=== PATIENT | female | born 1960 | race Caucasian/White ===

== ENCOUNTER 2023-12-12 09:46 | Outpatient (CLI) | payer MEDICARE, BC, SELFPAY ==
--- NOTE | 2023-12-12 09:45 | MR_ITS ---
[address] [address] Phone:?[phone] Fax:?[phone] Referring Physician Information: Marcos Hickey M.D. [address] [place] [id number] Phone:?[phone] Fax:?[phone] Patient:Leda Lee D.O.B:?1960 Sex:?Female Phone:?[phone] [facility] MRN:?[id number] Exam Date:?12/12/2023 EXAM: MRI of the LEFT SHOULDER WITHOUT CONTRAST CLINICAL HISTORY: Ongoing left shoulder pain. Fall injury. Evaluate for rotator cuff tear. COMPARISONS: Plain radiographs 12/06/2023. TECHNICAL: MRI sequences of the left shoulder: Axials: PD, T2 Coronals: PD, STIR, T2 Sagittals: PD, T2 SEDATION: None CONTRAST: None FINDINGS: Bones: No fracture or suspicious bone marrow signal abnormality. Coracoacromial arch: Acromion: No os acromiale. Type I-II acromion. Acromiohumeral space: The bony distance is unremarkable. Acromioclavicular joint: Slight degenerative changes. Coracoclavicular ligament: The coracoclavicular ligament is intact. Rotator cuff muscles/tendons: Supraspinatus: There is a 4 x 5 mm focus of ill-defined partial tearing of the supraspinatus tendon contacting the cortical insertional surface and closely approximating both the articular and bursal surfaces best seen on coronal sequences image 10 and sagittal sequences image 9. There is also strain versus ill-defined low-grade partial tear of the distal supraspinatus myotendinous junction best seen on coronal sequences image 12. There is moderate to marked atrophy of the supraspinatus muscle. Infraspinatus: The infraspinatus tendon and muscle are intact. Teres minor: The teres minor tendon and muscle are intact. Subscapularis: The subscapularis tendon and muscle are intact. Labrum and glenohumeral joint: No evidence of labral tear although evaluation is suboptimal because of nonarthrogram technique. Physiologic amount of joint fluid. No discrete chondral defect or subchondral bone marrow edema/cystic change is seen. There is edema-like signal within and thickening of the inferior glenohumeral ligament/glenohumeral joint capsule. There is soft tissue thickening within the rotator interval. Proximal biceps tendon, long head and short heads: Mild tendinopathy within the intra-articular portion of the long head of the biceps tendon The short head is intact. Bursae: Subacromial/subdeltoid: No convincing subacromial bursal thickening/bursitis. Subcoracoid: No convincing subcoracoid bursal thickening/bursitis. IMPRESSION: 1. 4 x 5 mm focus of ill-defined partial tearing of the supraspinatus tendon contacting the cortical insertional surface and closely approximating both the articular and bursal surfaces. Additionally, strain versus ill-defined low-grade partial tear of the distal supraspinatus myotendinous junction. Moderate to marked atrophy of the supraspinatus muscle. 2. Findings highly associated with adhesive capsulitis. 3. Mild tendinopathy within the intra-articular portion of the long head of the biceps tendon. RCB Electronically signed on 12/12/2023 12:06:00 PM by Uriel Molina M.D.
--- OUTSIDE RECORDS SUMMARY | 2023-12-12 09:51 | XMS_ITS ---
Author Organization [facility] Address [address] [place] [address] Care Team Providers Care Application Development Director Name Role Phone Unavailable Unavailable Unavailable Surgery Details Not on file Complications Check Surgery Details section. Procedure Estimated Blood Loss Check Surgery Details section. Procedure Findings Check Surgery Details section. Procedure Specimens Taken Check Surgery Details section.
--- OUTSIDE RECORDS SUMMARY | 2023-12-12 09:51 | XMS_ITS | Encounter Summary ---
Author Organization [facility] Address [address] [place] [address] Care Team Providers Care Relay Shop Supervisor Name Role Phone Carmella Montilla M.D. Primary Care Provider Reason for Visit * Reason Comments Shoulder Injury Encounter Details Date Type Department Care Team (Late st Contact Info) Description 12/03/2023 2:40 PM CDT - 12/03/2023 11:59 PM CDT Emergency [facility] [address] [place] [phone] History Of Falling (Primary Dx) Discharge Disposition: Home or Self Care Social History Tobacco Use Types Packs/Day Years Used Date Smoking Tobacco: Never Passive Smoke Exposure: Never Smokeless Tobacco: Never Alcohol Use Standard Drinks/Week Comments Not Currently 0 (1 standard drink = 0.6 oz pur e alcohol) Rare Humiliation, Afraid, Rape, and Kick questionnair e Answer Date Recorded Within the last year, have y ou been afraid of your partner or ex-partner? No 08/26/2022 Within the last year, have y ou been humiliated or emotionally abused in other ways by your partner or ex-partner? No Within the last year, have y ou been kicked, hit, slapped, or otherwise physically hurt by your partner or ex-partner? No 08/26/2022 Within the last year, have y ou been raped or forced to have any kind of sexual activity by your partner or ex-partner? No 08/26/2022 Social Connection and Isolation Panel [NHANES] A nswer Date Recorded In a typical week, how many times do you talk on the phone with family, friends, or neighbors? Patient declined 06/11/2019 How often do you get togethe r with friends or relatives? Patient declined 06/11/2019 How often do you attend amish or mormonism serv ices? Patient declined 06/11/2019 Do you belong to any clubs o r organizations such as amish groups, unions, fraternal or athletic groups, or school groups? Patient declined 06/11/2019 How often do you attend meet ings of the clubs or organizations you belong to? Patient declined 06/11/2019 Are you , , di vorced, , never , or living with a partner? 06/11/2019 Overall Financial Resource Strain (CARDIA) Answe r Date Recorded How hard is it for you to pa y for the very basics like food, housing, medical care, and heating? Somewhat hard 12/29/2022 PHQ-2 Answer Date Recorded PHQ-2 Score 2 12/29/2022 Exercise Vital Sign Answer Date Recorde d On average, how many days pe r week do you engage in moderate to strenuous exercise (like a brisk walk)? 0 days 12/29/2022 On average, how many minutes do you engage in exercise at this level? 0 min 12/29/2022 Hunger Vital Sign Answer Date Recorded Within the past 12 months, y ou worried that your food would run out before you got the money to buy more. Never true 12/30/19 23 Within the past 12 months, t he food you bought just didn't last and you didn't have money to get more. Never true 12/29/2022 PRAPARE - Transportation Answer Date Re corded In the past 12 months, has l ack of transportation kept you from medical appointments or from getting medications? No 12/14 In the past 12 months, has l ack of transportation kept you from meetings, work, or from getting things needed for daily living? No 12/29/2022 Depression Answer Date Recor ded PHQ-9 Total Score (max 27) 7 12/29 Nutrition Answer Date Recorded On average, how many serving s of fruits and vegetables do you eat per day (serving size is equal to 1 cup or approximately the size of a tennis ball)? 3-5 12/29/2022 Dental Answer Date Recorded Dental: Regular Dentist Yes 02/22/19 23 Employment Answer Date Recorded Employment status Permanently disabled 3 Housing Stability Answer Date Recorded What is your living situation today? I [address] a [facility] [place] [address] to live 12/29/2022 Education Answer Date Recorded What is the highest level of school you have completed or the highest degree you have received? 12th grade 10/09/2019 Comments No Sex and Gender Information Value Date Recorded Sex Assigned at Female 05/15/2021 12:03 PM CDT Legal Sex Female 4:24 AM CREDIT INVESTIGATOR Gender Identity Female 05/10/2017 9:37 AM CDT Sexual Orientation Straight 05/10/2017 9: 37 AM CDT documented as of this encounter Medications at Time of Discharge albuterol (Ventolin HFA) 90 mcg/actuation inhalerIndications :Asthma Moderate Persistent (HCC) Inhale 2 puffs every 6 (six) hours as needed for wheezing. 18 g 3 4 06/14/19 25 artificial tears with lanolin (REFRESH P.M.) ophthalmic ointment Apply 0.5 inches to both eyes at bedtime. benzonatate (TESSALON) 200 mg capsuleIndications :Asthma Cough Variant (HCC) Take 1 capsule (200 mg total) by mouth 3 (three) times a day as needed for cough. 42 capsule 3 3 02/10/20 24 blood-glucose meter (Blood Glucose Monitoring) kitIndications:Mary betes Mellitus Type 2 Hyperglycemia (HCC) Use as instructed 1 each 3 buPROPion (for_WELLBUTRIN SR) 150 mg 12 hr tablet Take 2 tablets by mouth daily. 7 carboxymethylce-gl ycerin-polysorbate 80 (Refresh Optive Advanced) 0.5-1-0.5 % ophthalmic solution Administer into both eyes 2 (two) times a day. ciprofloxacin-dexA METHasone (CIPRODEX) 0.3-0.1 % otic suspensionIndicati ons:Otitis Externa Acute Bilateral Administer 4 drops into the left ear 2 (two) times a day. 7.5 mL 3 clonazePAM (KlonoPIN) 1 mg tablet Take 1 tablet (1 mg total) by mouth 3 (three) times a day as needed. 2 Contour Next Test StripsIndications: Diabetes Mellitus Type 2 Hyperglycemia (HCC) TEST BLOOD SUGAR ONCE DAILY 100 strip 3 4 DME CPAP 2 EPINEPHrine (EpiPen 2-Bayron) 0.3 mg/0.3 mL injection syringeIndications :Allergy Food Subsequent Inject 0.3 mL (0.3 mg total) intramuscularly as needed for anaphylaxis. 1 each 2 3 estradioL (Estrace) 1 mg tablet take one tablet by mouth every day 90 tablet 3 4 fexofenadine (GENO) 180 mg tabletIndications: Asthma Moderate Persistent (HCC) Take 1 tablet (180 mg total) by mouth daily. 90 tablet 3 4 fluticasone propion-salmeteroL (Wixela Inhub) 250-50 mcg/dose diskus inhaler Inhale 1 puff 2 (two) times a day. Rinse mouth with water after use to reduce aftertaste and incidence of candidiasis. Do not swallow. 60 each 11 4 glipiZIDE (GlucotroL XL) 10 mg 24 hr tabletIndications: Diabetes Mellitus Type 2 Hyperglycemia (HCC) take one tablet by mouth twice a day with meals 180 tablet 3 4 ipratropium-albute roL (DUONEB) 0.5-2.5 mg/3 mL nebulizer solutionIndication s:Asthma Moderate Persistent (HCC) Inhale 3 mL by nebulization 4 (four) times a day as needed for wheezing or shortness of breath. 360 mL 5 4 06/16/19 25 lancets Use to check blood glucose levels once daily 100 each 3 3 latanoprost (Xalatan) 0.005 % ophthalmic solution INSTILL ONE DROP TO THE AFFECTED EYE(S) AT BEDTIME 2.5 mL 11 4 lisinopriL (PRINIVIL,ZESTRIL) 10 mg tabletIndications: Hypertension Essential Primary,Diabetes Mellitus Type 2 Hyperglycemia (HCC) Take 1 tablet (10 mg total) by mouth daily. 90 tablet 3 3 meclizine (ANTIVERT) 25 mg tabletIndications: Vertigo Take 1 tablet (25 mg total) by mouth 3 (three) times a day as needed for vertigo. 20 tablet 1 3 methylphenidate HCl (RITALIN) 10 mg tablet TAKE 2 TABLETS IN THE AFTERNOON AND 1 TABLET IN THE MORNING NEEDED 1 methylphenidate HCl (RITALIN) 20 mg tablet Take 20 mg by mouth daily. Taking in the afternoon montelukast (SINGULAIR) 10 mg tablet take one tablet by mouth at bedtime 90 tablet 3 4 nebulizers miscIndications:As thma Mild Persistent (HCC) Compact nebulizer machine, Cups, Filters and hose 1 each 1 omeprazole (PriLOSEC) [address] capsuleIndications :Dysphagia TAKE ONE CAPSULE BY MOUTH EVERY MORNING BEFORE BREAKFAST 90 capsule 3 3 prazosin (for_MINIPRESS) 1 mg capsule Take 2 capsules by mouth at bedtime. Prn 3 predniSONE (DELTASONE) 20 mg tablet Take 2 tablets (40 mg total) by mouth daily. 10 tablet 4 semaglutide (Ozempic) 0.25 mg or 0.5 mg (2 mg/3 mL) injectionIndicatio ns:Diabetes Mellitus Type 2 Hyperglycemia (HCC) Inject 0.5 mg under the skin every 7 (seven) days. 9 mL 3 3 02/10/20 24 simvastatin (ZOCOR) 40 mg tabletIndications: Hyperlipidemia On Treatment Take 1 tablet (40 mg total) by mouth at bedtime. 90 tablet 3 3 traZODone (DESYREL) 100 mg tablet Take 1 tablet (100 mg total) by mouth at bedtime as needed for sleep. 90 tablet 1 4 triamcinolone (KENALOG) 0.1 % ointment Apply topically 2 (two) times a day. 80 g 5 3 02/10/20 24 valACYclovir (VALTREX) 1000 mg tabletIndications: Herpes Simplex Labialis Take 1 tablet (1,000 mg total) by mouth 3 (three) times a day. 21 tablet 4 oxyBUTYnin (DITROPAN-XL) 10 mg 24 hr tablet Take 1 tablet (10 mg total) by mouth at bedtime. 90 tablet 3 3 12/11/19 24 documented as of this encounter Plan of Treatment Upcoming Encounters Date Type Department Care Team (Late st Contact Info) Description 12/20/2023 11:00 AM CREDIT INVESTIGATOR Office Visit Department of Family Medicine, [facility], in [place], [place] [address] [place] [phone] Carmella Montilla M.D. [address] [place] [phone] documented as of this encounter Goals Goal Patient Goal Type Associated Problems Recent Progress Patient-Stated? Author Blood Pressure < 130/80 Blood Pressure 128/80(2023 11:15 AM CDT) No Héctor Perea M.D. documented as of this encounter Procedures Procedure Name Priority Date/Time Associated Diagnosis Comments DX HUMERUS LEFT 2 VIEWS RAD - Semiurgent (Fast; most ED patients; some inpatients) 12/03/2023 3:24 PM CDT documented in this encounter Results * DX Humerus Left 2 Views (12/03/2023 3:24 PM CDT) Anatomical Region Laterality Modality Upper Extremity, Humerus, Mu sculoskeletal RST LOS, Musculoskeletal ARZ LOS, Muskuloskeletal FLA LOS Left Digit al Radiography Impressions 12/03/2023 3:36 PM CDT Negative for acute fracture. No aggressive appearing skeletal lesion. Mild ulnotrochlear degeneration. Mild acromioclavicular degeneration. Intact humerus. Narrative 12/03/2023 3:36 PM CDT EXAM: DX HUMERUS LEFT 2 VIEWS Procedure Note Pepito Presley M.D. - 12/03/2023 EXAM: DX HUMERUS LEFT 2 VIEWS IMPRESSION: Negative for acute fracture. No aggressive appearing skeletal lesion. Mildulnotrochlear degeneration. Mild acromioclavicular degeneration. Intacthumerus. [address] [facility] PROCEDUR ES Final Result documented in this encounter Visit Diagnoses Diagnosis History Of Falling- Primary documented in this encounter Additional Health Concerns Assessment Noted Time PHQ-9 Depression Total Score: 7 12/30/19 23 9:32 AM CREDIT INVESTIGATOR documented as of this encounter Care Teams Relay Shop Supervisor Relationship Specialty Start Date End Date Carmella Montilla M.D. [address] [place] [phone] PCP - General 03/10/22 documented as of this encounter
--- OUTSIDE RECORDS SUMMARY | 2023-12-12 09:51 | XMS_ITS | Clinical Summary ---
Author Organization [facility] Address [address] [place] [address] Care Team Providers Care Tanker Driver Name Role Phone Carmella Montilla M.D. Primary Care Provider Source Comments Patient records contain information from all sites at [facility]. For routine questions regarding patient records, call [phone] during business hours, M-F 8:00 AM - 5:00 PM Central Time. Record requests for emergency care only can be directed to [phone] at any time.[facility] Allergies Active Allergy Reactions Criticality Noted Date Comments Amoxicillin Other (see comments) 07/28/2020 welts Codeine Other (see comments) 12/29/2022 Impaired mental status Erythromycin Other (see comments) 06/19/2009 No rxn listed in cerner Fluticasone Propionate Rash 05/04/2023 Morphine Other (see comments) 06/19/2009 No rxn listed in cerner Penicillins Rash 02/11/2015 Oxycodone-Acetaminophen Other (see comments) No rxn listed in cerner Propofol Other (see comments) 09/28/2016 Contains soy Soy Shortness of breath (Reselect Reaction) 12/31/2010 Sulfa (Sulfonamide Antibiotics) Other (see comments) 07/28/2020 Sulfamethoxazole-Trimet hoprim Other (see comments) 06/19/2009 No rxn listed in cerner Medications * This document contains information received from the source organization and may not represent a complete record from that organization. buPROPion (for_WELLBUTRIN SR) 150 mg 12 hr tablet Take 2 tablets by mouth daily. 017 Active prazosin (for_MINIPRESS) 1 mg capsule Take 2 capsules by mouth at bedtime. Prn 013 Active methylphenidate HCl (RITALIN) 20 mg tablet Take 20 mg by mouth daily. Taking in the afternoon Active methylphenidate HCl (RITALIN) 10 mg tablet TAKE 2 TABLETS IN THE AFTERNOON AND 1 TABLET IN THE MORNING NEEDED 021 Active carboxymethylce- glycerin-polysor miguel 80 (Refresh Optive Advanced) 0.5-1-0.5 % ophthalmic solution Administer into both eyes 2 (two) times a day. Active artificial tears with lanolin (REFRESH P.M.) ophthalmic ointment Apply 0.5 inches to both eyes at bedtime. Active nebulizers miscIndications: Asthma Mild Persistent (HCC) Compact nebulizer machine, Cups, Filters and hose 1 each 021 Active clonazePAM (KlonoPIN) 1 mg tablet Take 1 tablet (1 mg total) by mouth 3 (three) times a day as needed. 022 Active DME CPAP 022 Active blood-glucose meter (Blood Glucose Monitoring) kitIndications:D iabetes Mellitus Type 2 Hyperglycemia (HCC) Use as instructed 1 each 023 Active lancets Use to check blood glucose levels once daily 100 each 3 023 Active ciprofloxacin-de xAMETHasone (CIPRODEX) 0.3-0.1 % otic suspensionIndica tions:Otitis Externa Acute Bilateral Administer 4 drops into the left ear 2 (two) times a day. 7.5 mL 023 Active simvastatin (ZOCOR) 40 mg tabletIndication s:Hyperlipidemia On Treatment Take 1 tablet (40 mg total) by mouth at bedtime. 90 tablet 3 023 Active omeprazole (PriLOSEC) [address] capsuleIndicatio ns:Dysphagia TAKE ONE CAPSULE BY MOUTH EVERY MORNING BEFORE BREAKFAST 90 capsule 3 023 Active lisinopriL (PRINIVIL,ZESTRI L) 10 mg tabletIndication s:Hypertension Essential Primary,Diabetes Mellitus Type 2 Hyperglycemia (HCC) Take 1 tablet (10 mg total) by mouth daily. 90 tablet 3 023 Active meclizine (ANTIVERT) 25 mg tabletIndication s:Vertigo Take 1 tablet (25 mg total) by mouth 3 (three) times a day as needed for vertigo. 20 tablet 1 023 Active benzonatate (TESSALON) 200 mg capsuleIndicatio ns:Asthma Cough Variant (HCC) Take 1 capsule (200 mg total) by mouth 3 (three) times a day as needed for cough. 42 capsule 3 023 2023 Active triamcinolone (KENALOG) 0.1 % ointment Apply topically 2 (two) times a day. 80 g 5 023 2023 Active EPINEPHrine (EpiPen 2-Bayron) 0.3 mg/0.3 mL injection syringeIndicatio ns:Allergy Food Subsequent Inject 0.3 mL (0.3 mg total) intramuscularly as needed for anaphylaxis. 1 each 2 023 Active semaglutide (Ozempic) 0.25 mg or 0.5 mg (2 mg/3 mL) injectionIndicat ions:Diabetes Mellitus Type 2 Hyperglycemia (HCC) Inject 0.5 mg under the skin every 7 (seven) days. 9 mL 3 023 2023 Active fexofenadine (GENO) 180 mg tabletIndication s:Asthma Moderate Persistent (HCC) Take 1 tablet (180 mg total) by mouth daily. 90 tablet 3 024 Active predniSONE (DELTASONE) 20 mg tablet Take 2 tablets (40 mg total) by mouth daily. 10 tablet 024 Active traZODone (DESYREL) 100 mg tablet Take 1 tablet (100 mg total) by mouth at bedtime as needed for sleep. 90 tablet 1 024 Active albuterol (Ventolin HFA) 90 mcg/actuation inhalerIndicatio ns:Asthma Moderate Persistent (HCC) Inhale 2 puffs every 6 (six) hours as needed for wheezing. 18 g 3 024 2024 Active fluticasone propion-salmeter oL (Wixela Inhub) 250-50 mcg/dose diskus inhaler Inhale 1 puff 2 (two) times a day. Rinse mouth with water after use to reduce aftertaste and incidence of candidiasis. Do not swallow. 60 each 11 Active ipratropium-albu teroL (DUONEB) 0.5-2.5 mg/3 mL nebulizer solutionIndicati ons:Asthma Moderate Persistent (HCC) Inhale 3 mL by nebulization 4 (four) times a day as needed for wheezing or shortness of breath. 360 mL 5 024 2024 Active valACYclovir (VALTREX) 1000 mg tabletIndication s:Herpes Simplex Labialis Take 1 tablet (1,000 mg total) by mouth 3 (three) times a day. 21 tablet Active montelukast (SINGULAIR) 10 mg tablet take one tablet by mouth at bedtime 90 tablet 3 Active Contour Next Test StripsIndication s:Diabetes Mellitus Type 2 Hyperglycemia (HCC) TEST BLOOD SUGAR ONCE DAILY 100 strip 3 Active glipiZIDE (GlucotroL XL) 10 mg 24 hr tabletIndication s:Diabetes Mellitus Type 2 Hyperglycemia (HCC) take one tablet by mouth twice a day with meals 180 tablet 3 Active estradioL (Estrace) 1 mg tablet take one tablet by mouth every day 90 tablet 3 Active latanoprost (Xalatan) 0.005 % ophthalmic solution INSTILL ONE DROP TO THE AFFECTED EYE(S) AT BEDTIME 2.5 mL 11 Active oxyBUTYnin (Ditropan-XL) 10 mg 24 hr tablet take one tablet by mouth at bedtime 90 tablet 3 024 Active latanoprost (XALATAN) 0.005 % ophthalmic solution INSTILL 1 DROP INTO BOTH EYES AT BEDTIME 2.5 mL 11 023 2023 Discontinued oxyBUTYnin (DITROPAN-XL) 10 mg 24 hr tablet Take 1 tablet (10 mg total) by mouth at bedtime. 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 Esophageal Motility Disorder 05/21/2021 Hypertension Essential Primary 01/18/2021 Anxiety 10/14/2020 Gastroesophageal Reflux Disease 07/29/2015 Morbid Obesity Body Mass Index 40.0-44.9 Adult 1 03/04/2014 Assessment & Plan (08/26/2022 11:44 AM CDT): Encouraged patient to exercise and cut back on foods high in carbs Posttraumatic Stress Disorder Prolonged 10/11/19 13 Incontinence Urinary Stress And Urge 08/02/2012 Hyperlipidemia On Treatment 10/21/2009 Attention Deficit Disorder Inattentive 0 Diabetes Mellitus Type 2 Hyperglycemia 9 Depression Major Recurrent Mild 08/03/2007 Overview (10/14/2020): Follows psych at [facility]. Asthma Mild Persistent 09/18/2006 Apnea Sleep Obstructive 09/06/2006 Overview (10/14/2020): On Cpap x15 years. Assessment & Plan (01/20/2020 3:00 PM LADLE CAR OPERATOR): Patient will benefit of using her CPAP. Order placed. She must continue with CPAP every night. Resolved Problems Problem Noted Date Diagnosed Date Resolved Date COVID-19 Infection 02/18/2021 4 Cholecystitis 08/21/2018 04/18/2019 Tonsillectomy And Adenoidectomy Status Post 07/22/2013 04/18/2019 Encounters Date Type Department Care Team Description 12/08/2023 Refill Department of Family Medicine, [facility], in [place], [place] [address] [place] [address] Carmella Montilla M.D. Med Refill 12/03/2023 2:40 PM CDT - 12/03/2023 11:59 PM CDT Emergency [facility] [address] [place] [address] History Of Falling (Primary Dx) Discharge Disposition: Home or Self Care 11/28/2023 Clinical Communication Department of Family Medicine, [facility], in [place], [place] [address] [place] [address] Carmella Montilla M.D. PandaDoc Form ([employer] ( CPAP Order ) 11/20/2023 Refill Department of Ophthalmology in [place], [place] [address] [place] [address] Alvaro Esposito M.D. Med Refill 10/16/2023 Refill Department of Family Medicine, [facility], in [place], [place] [address] [place] [address] Carmella Montilla M.D. Med Refill 09/19/2023 Orders Only [facility] Carm[facility] Montilla M.D. Diabetes Mellitus Type 2 Hyperglycemia (HCC) from Last 3 Months Immunizations Name Administration Dates Next Due H1N1 Inj Preservative Free 01/26/2009 HZV (ZOSTAVAX) 12/08/2014 Influenza Split 11/30/2004,11/24/2003,01/22/2003 Influenza, Seasonal, Injectable 12/28/2006 Influenza, Unspecified 01/04/2016,2014,12/11/2013,2013,11/18/2011,12/10/2010,12/16/2009 PPSV23 01/22/2003 Td Preservative Free (TENIVA C, DECAVAC) 01/22/2003 Tdap 08/31/2011 influenza trivalent vaccine (6 months and older)(PF) 11/24/2008 influenza vaccine quad (FLUZONE/FLUARIX) (6 months and older)(PF) 03/16/2019 Family History Medical History Relation Name Comments ADD Brother 1 Edward Anxiety disorder Brother 1 Edward Coronary artery disease Brother 1 Edward born bad valve [id number] years ago Depression Brother 1 Edward ptsd Diabetes Brother 1 Edward Heart valve disease Brother 1 Edward Valve re placement in 40's. Hyperlipidemia Brother 1 Edward Hypertension Brother 1 Edward Nephrolithiasis Brother 1 Edward Obesity Brother 1 Edward Sleep apnea Brother 2 ed ADD Daughter Wanda Obesity Daughter Wanda Anxiety disorder Father ed Coronary artery disease Father ed Diabetes Father ed Hypertension Father ed Sleep apnea Father ed Stroke Father ed Coronary artery disease Father's Brother Jose Alberto valve issue Coronary artery disease Father's Sister 1 elenor currnetly 3 leaky valves Hyperlipidemia Father's Sister 1 elenor Coronary artery disease Father's Sister 2 rolf replaced Coronary artery disease Father's Sister 3 rohini valve Diabetes Grandfather Maternal Diabetes Grandmother Maternal Rectal cancer Maternal Grandmother melchor Tuberculosis Maternal Grandmother melchor ADD Mother eleni Anxiety disorder Mother eleni Depression Mother eleni ?? Hyperlipidemia Mother eleni Obesity Mother eleni Breast cancer Mother's Sister 1 none Diabetes Mother's Sister 1 none Ovarian cancer Mother's Sister 1 none Breast cancer Mother's Sister 2 Breast cancer Mother's Sister 3 maggi Hyperlipidemia Mother's Sister 3 maggi ADD Son Sonu Relation Name Status Comments Brother 1 Edward Brother 2 ed Daughter Wanda Father ed Father's Brother Jose Alberto Father's Sister 1 elenor Father's Sister 2 rolf Father's Sister 3 rohini Grandfather Maternal Grandmother Maternal Maternal Grandmother melchor Mother eleni Mother's Sister 1 none Mother's Sister 2 Mother's Sister 3 maggi Son Sonu Social History Tobacco Use Types Packs/Day Years Used Date Smoking Tobacco: Never Passive Smoke Exposure: Never Smokeless Tobacco: Never Tobacco Cessation:Counseling Given: Not Answered Alcohol Use Standard Drinks/Week Comments Not Currently [...] declined 06/11/2019 How often do you attend mandaeism or hoahaoism serv ices? Patient declined 06/11/2019 Do you belong to any clubs o r organizations such as mandaeism groups, unions, fraternal or athletic groups, or [...] Date Recorded Dental: Regular Dentist Yes 02/22/19 Employment Answer Date Recorded Employment status Permanently disabled Housing Stability Answer Date Recorded What is your living situation today? I have a mago place to live 12/29/2022 Education Answer Date Recorded What is the highest level of school you have completed or the highest degree you have received? 12th grade 10/09/2019 Comments No Sex and Gender Information Value Date Recorded Sex Assigned at Female 05/15/2021 12:03 PM CDT Legal Sex Female 4:24 AM LADLE CAR OPERATOR Gender Identity Female 05/10/2017 9:37 AM CDT Sexual Orientation Straight 05/10/2017 9: 37 AM CDT Last Filed Vital Signs Vital Sign Reading Time Taken Comments Blood Pressure 128/80 06/19/2023 11:15 AM CDT Pulse 85 06/19/2023 11:15 AM CDT Temperature 36.7 ??C (98 ??F) 06/19/2023 11:15 AM CDT Respiratory Rate 16 03/14/2023 3:09 PM LADLE CAR OPERATOR Oxygen Saturation 96% 06/14/2023 11:43 AM CDT Inhaled Oxygen Concentration - - Weight 101 kg (223 lb 8.7 oz) 06/19/2023 11:15 A M CDT Height 158 cm (5' 2.21) 03/01/2023 2:15 PM LADLE CAR OPERATOR Body Mass Index 40.62 03/01/2023 2:15 PM LADLE CAR OPERATOR Plan of Treatment Upcoming Encounters Date Type Department Care Team (Late st Contact Info) Description 12/20/2023 11:00 AM LADLE CAR OPERATOR Office Visit Department of Family Medicine, [facility], in [place], [place] [address] [place] [address] Carmella Montilla M.D. [address] [place] [address] Health Maintenance Due Date Last Done Comments CT Colonography 1960 Cologuard 1960 FIT 1960 Pneumococcal vaccine (0-64 years) (2 of 2 - PCV) 01/23/2004 01/22/2003 Zoster Vaccines (2 of 3) 02/02/2015 12/08/2014 DTaP,Tdap,and Td Vaccines (2 - Td or Tdap) 08/30/2021 08/31/2011, 01/22/2003 Depression Monitoring (PHQ-9) 04/29/2023 12/29/2022 Visit: Medicare Annual Wellness 08/28/2023 08/26/2022 COVID-19 Vaccine ( season) 2023 Influenza Vaccine (#1) 2023 , 01/04/2016, 12/08/2014, Additional history exists Hemoglobin A1C 12/17/2023 06/16/2023, 12/14, 08/26/2022, Additional history exists Diabetic Office Visit with Foot Exam 12/30/2023 12/29/2022, 12/29/2022, 04/19/2019, Additional history exists Creatinine Level (Kidney Function Test) 01/01/2024 12/31/2022, 12/29/2022, 07/14/2022, Additional history exists Potassium Level 01/01/2024 12/31/2022, 12/14, 05/26/2022, Additional history exists Sodium Level 01/01/2024 12/31/2022, 12/14, 05/26/2022, Additional history exists Urine Albumin 06/15/2024 06/16/2023, 05/14, 04/02/2021, Additional history exists Office Visit for Blood Pressure Check / Re-check 06/18/2024 06/19/2023 Visit: Chronic Disease, age 18+ 06/18/2024 06/19/2023, 10/26/2021 Mammogram 08/03/2024 08/04/2023, /, 03/24/2021, Additional history exists Dilated Eye Exam 08/07/2024 08/08/2023, 03/2022, 07/07/2021 Colonoscopy 08/19/2025 08/20/2015 Colorectal Cancer Screening 08/19/2025 Lipid (Cholesterol) Screening 07/20/2026 07/20/2021, 04/28/2020, 04/19/2019, Additional history exists HIV Screening Completed 04/19/2019 Hepatitis C Screening Completed 04/19/2019 IPV Vaccines Aged Out No longer eligi ble based on patient's age to complete this topic Goals Goal Patient Goal Type Associated Problems Recent Progress Patient-Stated? Author Blood Pressure < 130/80 Blood Pressure 128/80(2023 11:15 AM CDT) Héctor Mesa M.D. Procedures Procedure Name Priority Date/Time Associated Diagnosis Comments DX HUMERUS LEFT 2 VIEWS RAD - Semiurgent (Fast; most ED patients; some inpatients) 12/03/2023 3:24 PM CDT BI BREAST SCREENING BILATERAL WITH TOMOSYNTHESIS RAD - Routine (most inpatients and all outpatients) 08/04/2023 3:34 PM CDT Screening Mammogram Breast Cancer ALBUMIN, RANDOM, U Routine 06/16/2023 11:10 AM CDT Diabetes Mellitus Type 2 Hyperglycemia (HCC) HEMOGLOBIN A1C, B Routine 06/16/2023 9:19 AM CDT Diabetes Mellitus Type 2 Hyperglycemia (HCC) BASIC METABOLIC PANEL, S/P Routine 12/29/2022 9:27 AM LADLE CAR OPERATOR Diabetes Mellitus Type 2 (HCC) LIPID PANEL, S Routine 07/20/2021 11:32 AM CDT Hyperlipidemia On Treatment HCV AB SCRN W/REFLEX TO HCV PCR, S Routine 04/19/2019 10:47 AM LADLE CAR OPERATOR Screening Test Laboratory HIV-1/-2 AG AND AB SCREEN, PLASMA Routine 04/19/2019 10:47 AM LADLE CAR OPERATOR Human Immunodeficiency Virus Screening from Last 3 Months or Most Recently Relevant to Health Maintenance Results * DX Humerus Left 2 Views [...] degeneration. Mild acromioclavicular degeneration. Intacthumerus. [address] [facility]NO[facility]IC IMAGING PROCEDUR ES Final Result * BI Breast Screening Bilateral with Tomosynthesis (08/04/2023 3:34 PM CDT) Anatomical Region Laterality Modality Breast, Breast Imaging RST L OS, Breast Imaging ARZ LOS, Breast Imaging FLA LOS Bilateral Mammography Impressions 08/04/2023 4:34 PM CDT Negative. RECOMMENDATION: ??Annual Screening Mammogram ASSESSMENT: ??BI-RADS: 1: Negative. Narrative 08/04/2023 4:34 PM CDT EXAM: ??BI BREAST SCREENING BILATERAL WITH TOMOSYNTHESIS Current study was evaluated with a Computer Aided Detection (CAD) system. INDICATION: ??Screening mammogram. COMPARISON: ??Prior exam(s) were available and reviewed for comparison. DENSITY: ??b. There are scattered areas of fibroglandular density. FINDINGS: ??No mammographic findings of malignancy. Procedure Note Merlin Rodriguez M.D. - 08/04/2023 EXAM: BI BREAST SCREENING BILATERAL WITH TOMOSYNTHESIS Current study was evaluated with a Computer Aided Detection (CAD) system. INDICATION: Screening mammogram. COMPARISON: Prior exam(s) were available and reviewed for comparison. DENSITY: b. There are scattered areas of fibroglandular density. FINDINGS: No mammographic findings of malignancy. IMPRESSION: Negative. RECOMMENDATION: Annual Screening Mammogram ASSESSMENT: BI-RADS: 1: Negative. Carmella Montilla M.D. IMG BI PROCEDURES Final Result * Albumin, Random, Urine (06/16/2023 11:10 AM CDT) Microalbumin <12.0 mg/L 06/16/2023 12:55 PM CDT [facility] Comment:If clinically indica marychuy, contact the lab for additional testing. Creatinine 73 mg/dL 06/16/2023 12:55 PM CDT [facility] Albumin/Creatinine Ratio <16 <25 mg/g 06/16/2023 12:55 PM CDT [facility] Comment: This ratio may not correspond with the reference range because one or both of the values used to calculate the ratio was above or below the quantification limits. Urine (Urine, Midstream) 06/16/2023 11:10 AM CDT 06/16/2023 12:02 PM CDT Carmella Montilla M.D. LAB URINE ORDERABLES Fi nal Result Performing Organization Address [facility] Co de Phone Number [facility] [address] [place] [phone], [facility] in [place] [address] [place] [phone] * (ABNORMAL) Hemoglobin A1c (06/16/2023 9:19 AM CDT) Hemoglobin A1c, B 6.9(H) 4.2 - 5.6 % 06/16/2023 9:49 AM CDT [facility] Comment: Hemoglobin A1c values greater than or equal to 6.5 percent are diagnostic for diabetes mellitus. ??Diagnosis should be confirmed by repeat testing. ??In diabetic patients, HbA1c goals should be discussed with healthcare provider. Blood (Blood, Venous) 06/16/2023 9:19 AM CDT 06/16/2023 9:27 AM CDT Carmella Montilla M.D. LAB BLOOD ADD-ON Final Result [facility] [address] [place] [address], [facility] in [place] [address] [place] [address] * (ABNORMAL) Basic Metabolic Panel (12/29/2022 9:27 AM LADLE CAR OPERATOR) Potassium, P 4.9 3.6 - 5.2 mmol/L 12/29/2022 10:16 AM LADLE CAR OPERATOR [facility] Sodium, P 135 135 - 145 mmol/L 12/29/2022 10:16 AM LADLE CAR OPERATOR [facility] Chloride, P 100 98 - 107 mmol/L 12/29/2022 10:16 AM LADLE CAR OPERATOR [facility] Bicarbonate, P 24 22 - 29 mmol/L 12/29/2022 10:16 AM LADLE CAR OPERATOR [facility] Anion Gap, P 11 7 - 15 12/29/2022 10:16 AM LADLE CAR OPERATOR [facility] BUN (Blood Urea Nitrogen), P 20 6 - 21 mg/dL 12/29/2022 10:16 AM LADLE CAR OPERATOR [facility] Creatinine 0.74 0.59 - 1.04 mg/dL 12/29/2022 10:16 AM LADLE CAR OPERATOR [facility] Estimated GFR (eGFR) >90 >=60 mL/min/BSA 12/29/2022 10:16 AM LADLE CAR OPERATOR [facility] Comment: Estimated GFR calculated using the 2020 CKD_EPI creatinine equation. Calcium, Total, P 9.5 8.8 - 10.2 mg/dL 12/29/2022 10:16 AM LADLE CAR OPERATOR [facility] Glucose, P 180(H) 70 - 140 mg/dL 12/29/2022 10:16 AM LADLE CAR OPERATOR [facility] Blood (Blood, Venous) 12/29/2022 9:27 AM LADLE CAR OPERATOR 12/29/2022 9:32 AM LADLE CAR OPERATOR Carmella Montilla M.D. LAB BLOOD ADD-ON Final Result [facility] [address] [place] [address], [place] [facility] [place] [address] [place] [address] * (ABNORMAL) Lipid Panel (07/20/2021 11:32 AM CDT) Cholesterol, Total 223(H) mg/dL 2021 12:12 PM CDT [facility] Comment: ----REFERENCE VALUE---- Desirable: < 200 Borderline high: 200 - 239 High: > or = 240 Triglycerides 251(H) mg/dL 07/20/2021 12:12 PM CDT [facility] Comment: ----REFERENCE VALUE---- Normal: <150 Borderline high: 150-199 High: 200-499 Very high: > or =500 Cholesterol, HDL 64 >=50 mg/dL 07/21/19 12:12 PM CDT [facility] Calculated LDL 109 mg/dL 07/20/2021 12:12 PM CDT [facility] Comment: ----REFERENCE VALUE---- Desirable: <100 mg/dL Above Desirable: 100-129 mg/dL Borderline High: 130-159 mg/dL High: 160-189 mg/dL Very High: >=190 mg/dL Cholesterol, Non-HDL, Calculated 159 mg/dL 07/20/2021 12:12 PM CDT [facility] Comment: ----REFERENCE VALUE---- Desirable: <130 Above Desirable: 130-159 Borderline high: 160-189 High: 190-219 Very high: > or =220 Blood (Blood, Venous) 07/20/2021 11:32 AM CDT 07/20/2021 11:33 AM CDT Janell Hernandez APRN, C.N.P., D.N.P. LAB BLOOD ADD -ON Final Result [facility] [address] [place] [address], [facility] in [place] [address] [place] [address] * HIV-1/-2 Ag and Ab Screen, Plasma (04/19/2019 10:47 AM LADLE CAR OPERATOR) HIV Ag/Ab Screen, P Negative Negative 04/19/2019 5:22 PM LADLE CAR OPERATOR [facility] Comment: Negative result does not rule out HIV infection. If exposure to HIV infection occurred <14 days ago, contact the laboratory to request addition of HIV-1 RNA detection / quantification test. HIV-1 p24 Ag Screen, P Negative Negative 04/19/2019 5:22 PM LADLE CAR OPERATOR [facility] Comment: Negative result does not rule out HIV infection. If exposure to HIV infection occurred <14 days ago, contact the laboratory to request addition of HIV-1 RNA detection / quantification test. HIV-1 Ab Screen, P Negative Negative 2019 5:22 PM LADLE CAR OPERATOR [facility] Comment: Negative result does not rule out HIV infection. If exposure to HIV infection occurred <14 days ago, contact the laboratory to request addition of HIV-1 RNA detection / quantification test. HIV-2 Ab Screen, P Negative Negative 2019 5:22 PM LADLE CAR OPERATOR [facility] Comment: Negative result does not rule out HIV infection. If exposure to HIV infection occurred <14 days ago, contact the laboratory to request addition of HIV-1 RNA detection / quantification test. Blood (Blood, Venous) 04/19/2019 10:47 AM LADLE CAR OPERATOR 04/19/2019 2:53 PM LADLE CAR OPERATOR Carmela Ash APRN, C.N.P. , D.N.P. LAB MICROBIOLOGY - BLOOD ORDERABLES Final Result [facility] [address] [place] [address], [facility] [place] [address] * HCV Ab Scrn w/Reflex to HCV PCR, Serum (04/19/2019 10:47 AM LADLE CAR OPERATOR) HCV Ab Screen, S Negative Negative 04/20/2019 8:13 AM LADLE CAR OPERATOR [facility] Comment:[id number]-[id number] rat io is <1.00. Blood (Blood, Venous) 04/19/2019 10:47 AM LADLE CAR OPERATOR 04/20/2019 7:12 AM LADLE CAR OPERATOR us Carmela Ash APRN, C.N.P. , D.N.P. LAB MICROBIOLOGY - BLOOD ORDERABLES Final Result [facility] [address] [place] [address] [facility] Dept. of Laboratory Medicine and Pathology [address] [place] [phone] from Last 3 Months or Most Recently Relevant to Health Maintenance Insurance MEDICARE [facility] MEDICARE Care Teams Tanker Driver Relationship Specialty Start Date End Date Carmella Montilla M.D. [address] [place] [phone] PCP - General 03/10/22
--- OUTSIDE RECORDS SUMMARY | 2023-12-12 09:51 | XMS_ITS | Encounter Summary ---
Author Organization [facility] Address [address] [place] [address] Care Team Providers Care Industrial Sweeper Cleaner Name Role Phone Carmella Montilla M.D. Primary Care Provider Reason for Visit * Reason Comments Med Refill Encounter Details Date Type Department Care Team (Late st Contact Info) Description 12/08/2023 Refill Department of Family Medicine, [facility], in [place], [place] [address] [phone] Carmella Montilla M.D. [address] [phone] Med Refill Social History Tobacco Use Types Packs/Day Years [...] declined 06/11/2019 How often do you attend pentecostal or buddhist serv ices? Patient declined 06/11/2019 Do you belong to any clubs o r organizations such as pentecostal groups, unions, fraternal or athletic groups, or [...] PM CDT Legal Sex Female 4:24 AM FLOATLIGHT LOADING SUPERVISOR Gender Identity Female 05/10/2017 9:37 AM CDT Sexual Orientation Straight 05/10/2017 9: 37 AM CDT documented as of this encounter Plan of Treatment Upcoming Encounters Date Type Department Care Team (Late st Contact Info) Description 12/20/2023 11:00 AM FLOATLIGHT LOADING SUPERVISOR Office Visit Department of Family Medicine, [facility], in [place], [place] [address] [place] [phone] Carmella Montilla M.D. [address] [place] [phone] documented as of this encounter Goals Goal Patient Goal Type Associated Problems Recent Progress Patient-Stated? Author Blood Pressure < 130/80 Blood Pressure 128/80(2023 11:15 AM CDT) No Héctor Perea M.D. documented as of this encounter Visit Diagnoses Not on filedocumented in this encounter Additional Health Concerns Assessment Noted Time PHQ-9 Depression Total Score: 7 12/30/19 9:32 AM FLOATLIGHT LOADING SUPERVISOR documented as of this encounter Care Teams Industrial Sweeper Cleaner Relationship Specialty Start Date End Date Carmella Montilla M.D. [address], [place] [phone] PCP - General 03/10/22 documented as of this encounter
--- OUTSIDE RECORDS SUMMARY | 2023-12-12 09:51 | XMS_ITS | Referral Summary ---
Author Organization [facility] Address [address] [place] [address] Care Team Providers Care Principal Developer Name Role Phone Carmella Montilla M.D. Primary Care Provider Source Comments Patient records contain information from all sites at [facility]. For routine questions regarding patient records, call [phone] during business hours, M-F 8:00 AM - 5:00 PM Central Time. Record requests for emergency care only can be directed to [phone] at any time.[facility] Encounters Date Type Department Care Team Description 12/08/2023 Refill Department of Family Medicine, [facility], in [place], [place] [address] [place] [phone] Carmella Montilla M.D. Med Refill 12/03/2023 2:40 PM CDT - 12/03/2023 11:59 PM CDT Emergency [facility] [address] [place] [phone] History Of Falling (Primary Dx) Discharge Disposition: Home or Self Care 11/28/2023 Clinical Communication Department of Family Medicine, [facility], in [place], [place] [address] [phone] Carmella Montilla M.D. PandaDoc Form ([facility] [facility] ( CPAP Order ) 11/20/2023 Refill Department of Ophthalmology in [place], [place] [address] [phone] Alvaro Esposito M.D. Med Refill 10/16/2023 Refill Department of Family Medicine, [facility], in [place], [place] [address] [place] [address] Carmella Montilla M.D. Med Refill 09/19/2023 [facility] Carm[facility] Montilla M.D. Diabetes Mellitus Type 2 Hyperglycemia (HCC) from Last 3 Months Allergies Active Allergy Reactions Criticality Noted Date [...] candidiasis. Do not swallow. 60 each 11 024 Active ipratropium-albu teroL (DUONEB) 0.5-2.5 mg/3 mL [...] at bedtime 90 tablet 3 024 Active Contour Next Test StripsIndication s:Diabetes Mellitus Type 2 Hyperglycemia (HCC) TEST BLOOD SUGAR ONCE DAILY 100 strip 3 024 Active glipiZIDE (GlucotroL XL) 10 mg 24 hr tabletIndication s:Diabetes Mellitus Type 2 Hyperglycemia (HCC) take one tablet by mouth twice a day with meals 180 tablet 3 Active estradioL (Estrace) 1 mg tablet take one tablet by mouth every day 90 tablet 3 024 Active latanoprost (Xalatan) 0.005 % ophthalmic solution [...] Mild 08/03/2007 Overview (10/14/2020): Follows psych at [facility]. Asthma Mild Persistent 09/18/2006 Apnea Sleep Obstructive 09/06/2006 Overview (10/14/2020): On Cpap x15 years. Assessment & Plan (01/20/2020 3:00 PM WASTEWATER TREATMENT PLANT SUPERVISOR): Patient will benefit of using her CPAP. Order placed. She must continue with CPAP every night. Resolved Problems Problem Noted Date Diagnosed Date Resolved Date COVID-19 Infection 02/18/2021 4 Cholecystitis 08/21/2018 04/18/2019 Tonsillectomy And Adenoidectomy Status Post 07/22/2013 04/18/2019 Immunizations Name Administration Dates Next Due H1N1 Inj Preservative Free 01/26/2009 HZV (ZOSTAVAX) 12/08/2014 Influenza Split 11/30/2004,11/24/2003,01/22/2003 Influenza, Seasonal, Injectable 12/28/2006 Influenza, Unspecified 01/04/2016,2014,12/11/2013,2013,11/18/2011,12/10/2010,12/16/2009 PPSV23 01/22/2003 Td Preservative Free (TENIVA C, DECAVAC) 01/22/2003 Tdap 08/31/2011 influenza trivalent vaccine (6 months and older)(PF) 11/24/2008 influenza vaccine quad (FLUZONE/FLUARIX) (6 months and older)(PF) 03/16/2019 Social History Tobacco Use Types Packs/Day Years [...] declined 06/11/2019 How often do you attend christian or baptism serv ices? Patient declined 06/11/2019 Do you belong to any clubs o r organizations such as christian groups, unions, fraternal or athletic groups, or [...] your living situation today? I have a [facility] place to live 12/29/2022 Education Answer Date Recorded What is the highest level of school you have completed or the highest degree you have received? 12th grade 10/09/2019 Comments No Sex and Gender Information Value Date Recorded Sex Assigned at Female 05/15/2021 12:03 PM CDT Legal Sex Female 4:24 AM WASTEWATER TREATMENT PLANT SUPERVISOR Gender Identity Female 05/10/2017 9:37 AM CDT Sexual Orientation Straight 05/10/2017 9: 37 AM CDT Last Filed Vital Signs Vital Sign Reading Time Taken Comments Blood Pressure 128/80 06/19/2023 11:15 AM CDT Pulse 85 06/19/2023 11:15 AM CDT Temperature 36.7 ??C (98 ??F) 06/19/2023 11:15 AM CDT Respiratory Rate 16 03/14/2023 3:09 PM WASTEWATER TREATMENT PLANT SUPERVISOR Oxygen Saturation 96% 06/14/2023 11:43 AM CDT Inhaled Oxygen Concentration - - Weight 101 kg (223 lb 8.7 oz) 06/19/2023 11:15 A M CDT Height 158 cm (5' 2.21) 03/01/2023 2:15 PM WASTEWATER TREATMENT PLANT SUPERVISOR Body Mass Index 40.62 03/01/2023 2:15 PM WASTEWATER TREATMENT PLANT SUPERVISOR Plan of Treatment Upcoming Encounters Date Type Department Care Team (Late st Contact Info) Description 12/20/2023 11:00 AM WASTEWATER TREATMENT PLANT SUPERVISOR Office Visit Department of Family Medicine, [facility], in [place], [place] [address] [place] [phone] Carmella Montilla M.D. [address] [place] [phone] Goals Goal Patient Goal Type Associated Problems [...] METABOLIC PANEL, S/P Routine 12/29/2022 9:27 AM WASTEWATER TREATMENT PLANT SUPERVISOR Diabetes Mellitus Type 2 (HCC) LIPID PANEL, S Routine 07/20/2021 11:32 AM CDT Hyperlipidemia On Treatment HCV AB SCRN W/REFLEX TO HCV PCR, S Routine 04/19/2019 10:47 AM WASTEWATER TREATMENT PLANT SUPERVISOR Screening Test Laboratory HIV-1/-2 AG AND AB SCREEN, PLASMA Routine 04/19/2019 10:47 AM WASTEWATER TREATMENT PLANT SUPERVISOR Human Immunodeficiency Virus Screening from Last 3 [...] Mild acromioclavicular degeneration. Intacthumerus. [address] [facility] DIAGNOSTIC IMAGING PROCEDUR ES Final Result * BI Breast Screening Bilateral with Tomosynthesis (08/04/2023 3:34 PM CDT) Anatomical Region Laterality Modality Breast, Breast Imaging RST L OS, Breast Imaging ARZ LOS, Breast Imaging FLA [facility] Bilateral Mammography Impressions 08/04/2023 4:34 PM CDT [...] Annual Screening Mammogram ASSESSMENT: BI-RADS: 1: Negative. us Carmella Montilla M.D. IMG BI PROCEDURES Final [...] M.D. LAB URINE ORDERABLES Fi nal Result [facility] [address] [place] [phone], [facility] [[email or web address]] [facility] [place] [address] [place] [address] * (ABNORMAL) Hemoglobin A1c (06/16/2023 9:19 AM [...] Montilla M.D. LAB BLOOD ADD-ON Final Result Performing Organization Address City/[facility]/ZIP Co de Phone Number [facility] [address] [place] [address], [place] [facility] in [place] [address] [place] [address] * (ABNORMAL) Basic Metabolic Panel (12/29/2022 9:27 AM WASTEWATER TREATMENT PLANT SUPERVISOR) Potassium, P 4.9 3.6 - 5.2 mmol/L 12/29/2022 10:16 AM WASTEWATER TREATMENT PLANT SUPERVISOR [facility] Sodium, P 135 135 - 145 mmol/L 12/29/2022 10:16 AM WASTEWATER TREATMENT PLANT SUPERVISOR [facility] Chloride, P 100 98 - 107 mmol/L 12/29/2022 10:16 AM WASTEWATER TREATMENT PLANT SUPERVISOR [facility] Bicarbonate, P 24 22 - 29 mmol/L 12/29/2022 10:16 AM WASTEWATER TREATMENT PLANT SUPERVISOR [facility] Anion Gap, P 11 7 - 15 12/29/2022 10:16 AM WASTEWATER TREATMENT PLANT SUPERVISOR [facility] BUN (Blood Urea Nitrogen), P 20 6 - 21 mg/dL 12/29/2022 10:16 AM WASTEWATER TREATMENT PLANT SUPERVISOR [facility] Creatinine 0.74 0.59 - 1.04 mg/dL 12/29/2022 10:16 AM WASTEWATER TREATMENT PLANT SUPERVISOR [facility] Estimated GFR (eGFR) >90 >=60 mL/min/BSA 12/29/2022 10:16 AM WASTEWATER TREATMENT PLANT SUPERVISOR [facility] Comment: Estimated GFR calculated using the 2020 CKD_EPI creatinine equation. Calcium, Total, P 9.5 8.8 - 10.2 mg/dL 12/29/2022 10:16 AM WASTEWATER TREATMENT PLANT SUPERVISOR [facility] Glucose, P 180(H) 70 - 140 mg/dL 12/29/2022 10:16 AM WASTEWATER TREATMENT PLANT SUPERVISOR [facility] Blood (Blood, Venous) 12/29/2022 9:27 AM WASTEWATER TREATMENT PLANT SUPERVISOR 12/29/2022 9:32 AM WASTEWATER TREATMENT PLANT SUPERVISOR Carmella Montilla M.D. LAB BLOOD ADD-ON Final Result [facility] [address] [place] [address], [place] [facility] [place] [address] [place] [address] * (ABNORMAL) Lipid Panel (07/20/2021 11:32 AM [...] D.N.P. LAB BLOOD ADD -ON Final Result [facility] [address] [place] [address], [facility] [[email or web address]] [facility] [place] [address] [place] [address] * HIV-1/-2 Ag and Ab Screen, Plasma (04/19/2019 10:47 AM WASTEWATER TREATMENT PLANT SUPERVISOR) HIV Ag/Ab Screen, P Negative Negative 04/19/2019 5:22 PM WASTEWATER TREATMENT PLANT SUPERVISOR [facility] Comment: Negative result does not rule out HIV infection. If exposure to HIV infection occurred <14 days ago, contact the laboratory to request addition of HIV-1 RNA detection / quantification test. HIV-1 p24 Ag Screen, P Negative Negative 04/19/2019 5:22 PM WASTEWATER TREATMENT PLANT SUPERVISOR [facility] Comment: Negative result does not rule out HIV infection. If exposure to HIV infection occurred <14 days ago, contact the laboratory to request addition of HIV-1 RNA detection / quantification test. HIV-1 Ab Screen, P Negative Negative 2019 5:22 PM WASTEWATER TREATMENT PLANT SUPERVISOR [facility] Comment: Negative result does not rule out HIV infection. If exposure to HIV infection occurred <14 days ago, contact the laboratory to request addition of HIV-1 RNA detection / quantification test. HIV-2 Ab Screen, P Negative Negative 2019 5:22 PM WASTEWATER TREATMENT PLANT SUPERVISOR [facility] Comment: Negative result does not rule out HIV infection. If exposure to HIV infection occurred <14 days ago, contact the laboratory to request addition of HIV-1 RNA detection / quantification test. Blood (Blood, Venous) 04/19/2019 10:47 AM WASTEWATER TREATMENT PLANT SUPERVISOR 04/19/2019 2:53 PM WASTEWATER TREATMENT PLANT SUPERVISOR Carmela Ash APRN, C.N.P. , D.N.P. LAB MICROBIOLOGY - BLOOD ORDERABLES Final Result [facility] [address] [place] [address], [facility] in [address] [address] * HCV Ab Scrn w/Reflex to HCV PCR, Serum (04/19/2019 10:47 AM WASTEWATER TREATMENT PLANT SUPERVISOR) HCV Ab Screen, S Negative Negative 04/20/2019 8:13 AM WASTEWATER TREATMENT PLANT SUPERVISOR [facility] Comment:Owoqcj-[id number] rat io is <1.00. Blood (Blood, Venous) 04/19/2019 10:47 AM WASTEWATER TREATMENT PLANT SUPERVISOR 04/20/2019 7:12 AM WASTEWATER TREATMENT PLANT SUPERVISOR Carmela Ash APRN, C.N.P. , [facility] LAB MICROBIOLOGY - BLOOD ORDERABLES Final Result [facility] [address] [place] [address] [facility] Dept. of Laboratory Medicine and Pathology [address] [place] [address] from Last 3 Months or Most Recently Relevant to Health Maintenance Insurance MEDICARE [facility] [place] [address] MEDICARE Care Teams Principal Developer Relationship Specialty Start Date End Date Carmella Montilla M.D. [address] [place] [phone] PCP - General 03/10/22
--- OUTSIDE RECORDS SUMMARY | 2023-12-12 09:52 | XMS_ITS | Encounter Summary ---
Author Organization [facility] Address [address] [place] [address] Care Team Providers Care Pharmaceutical Operator Name Role Phone Carmella Montilla M.D. Primary Care Provider Reason for Visit * Reason Comments Med Refill Encounter Details Date Type Department Care Team (Late st Contact Info) Description 10/16/2023 Refill Department of Family Medicine, [facility], in [place], [place] [address] [phone] Carmella Montilla M.D. [address] [phone] Med Refill Social History Tobacco [...] declined 06/11/2019 How often do you attend latter-day or sikh serv ices? Patient declined 06/11/2019 Do you belong to any clubs o r organizations such as latter-day groups, unions, fraternal or athletic groups, or [...] PM CDT Legal Sex Female 4:24 AM STATION COOK Gender Identity Female 05/10/2017 9:37 AM CDT Sexual Orientation Straight 05/10/2017 9: 37 AM CDT documented as of this encounter Plan of Treatment Upcoming Encounters Date Type Department Care Team (Late st Contact Info) Description 12/20/2023 11:00 AM STATION COOK Office Visit Department of Family Medicine, [facility], in [place], [place] [address] [place] [phone] Carmella Montilla M.D. [address] [place] [phone] documented as of this encounter Goals Goal Patient Goal Type Associated Problems Recent Progress Patient-Stated? Author Blood Pressure < 130/80 Blood Pressure 128/80(2023 11:15 AM CDT) No Héctor Perea M.D. documented as of this encounter Visit Diagnoses Not on filedocumented in this encounter Additional Health Concerns Assessment Noted Time PHQ-9 Depression Total Score: 7 12/30/19 9:32 AM STATION COOK documented as of this encounter Care Teams Pharmaceutical Operator Relationship Specialty Start Date End Date Carmella Montilla M.D. [address] [phone] PCP - General 03/10/22 documented as of this encounter
--- OUTSIDE RECORDS SUMMARY | 2023-12-12 09:52 | XMS_ITS | Encounter Summary ---
Author Organization [facility] Address [address] [place] [address] Care Team Providers Care Sales And Retail Management Recruiter Name Role Phone Carmella Montilla M.D. Primary Care Provider Reason for Visit * Reason Comments Med Refill Encounter Details Date Type Department Care Team (Late st Contact Info) Description 11/20/2023 Refill Department of Ophthalmology in [place], [place] [address] [place] [phone] Alvaro Esposito M.D. [address], [place] [phone] Med Refill Social History Tobacco Use [...] declined 06/11/2019 How often do you attend jew or denominational serv ices? Patient declined 06/11/2019 Do you belong to any clubs o r organizations such as jew groups, unions, fraternal or athletic groups, or [...] PM CDT Legal Sex Female 4:24 AM PAIN COORDINATOR Gender Identity Female 05/10/2017 9:37 AM CDT Sexual Orientation Straight 05/10/2017 9: 37 AM CDT documented as of this encounter Plan of Treatment Upcoming Encounters Date Type Department Care Team (Late st Contact Info) Description 12/20/2023 11:00 AM PAIN COORDINATOR Office Visit Department of Family Medicine, [facility], in [place], [place] [address] [place] [phone] Carmella Montilla M.D. [address] [phone] documented as of this encounter Goals Goal Patient Goal Type Associated Problems Recent Progress Patient-Stated? Author Blood Pressure < 130/80 Blood Pressure 128/80(2023 11:15 AM CDT) No Héctor Perea M.D. documented as of this encounter Visit Diagnoses Not on filedocumented in this encounter Additional Health Concerns Assessment Noted Time PHQ-9 Depression Total Score: 7 12/30/19 9:32 AM PAIN COORDINATOR documented as of this encounter Care Teams Sales And Retail Management Recruiter Relationship Specialty Start Date End Date Carmella Montilla M.D. [address] [phone] PCP - General 03/10/22 documented as of this encounter
--- OUTSIDE RECORDS SUMMARY | 2023-12-12 09:52 | XMS_ITS | Encounter Summary ---
Author Organization [facility] Address [address] [place] [address] Care Team Providers Care Flatwork Tier Name Role Phone Carmella Montilla M.D. Primary Care Provider Reason for Referral * Outpatient (Routine) - Authorized Specialty Diagnoses / Procedures Referred By Simi t Referred To Contact Carmella Montilla M.D. [address] [place] [address] Phone: tel: fax: [facility] Region Referral ID Status Reason Start Date Expiration Date V isits Requested Visits Authorized [id number] Authorized 09/19/2023 03/20/2025 1 1 Scheduling Instructions Nurse AWV Do not schedule prior to due date to ensure insurance coverage Visit: Medicare Annual Wellness due on 08/28/2023. Encounter Details Date Type Department Care Team (Late st Contact Info) Description 09/19/2023 Orders Only [facility] Carmella Montilla M.D. [address] [place] [phone] Diabetes Mellitus Type 2 Hyperglycemia (HCC) Social History Tobacco Use Types Packs/Day Years [...] declined 06/11/2019 How often do you attend yazidism or taoist serv ices? Patient declined 06/11/2019 Do you belong to any clubs o r organizations such as yazidism groups, unions, fraternal or athletic groups, or [...] your living situation today? I have a [facility] place to live 12/29/2022 Education Answer Date Recorded What is the highest level of school you have completed or the highest degree you have received? 12th grade 10/09/2019 Comments No Sex and Gender Information Value Date Recorded Sex Assigned at Female 05/15/2021 12:03 PM CDT Legal Sex Female 4:24 AM EMPLOYEE REPRESENTATIVE Gender Identity Female 05/10/2017 9:37 AM CDT Sexual Orientation Straight 05/10/2017 9: 37 AM CDT documented as of this encounter Plan of Treatment Upcoming Encounters Date Type Department Care Team (Late st Contact Info) Description 12/20/2023 11:00 AM EMPLOYEE REPRESENTATIVE Office Visit Department of Family Medicine, [facility], in [place], [place] [address], [place] [phone] Carmella Montilla M.D. [address], [place] [phone] Scheduled Orders Name Type Priority Associated Diagnoses Orde r Schedule Hemoglobin A1c Lab Routine Diabetes Mellitus Type 2 Hyperglycemia (HCC) Expected: 10/03/2023, Expires: 03/17/2024 Scheduled Referrals Name Type Priority Associated Diagnoses Orde r Schedule Primary Care nurse visit (clinic) - [facility] Region; Medicare Annual Wellness Outpatient Referral Routine Expected: 10/17/2023, Expires: 03/17/2024 documented as of this encounter Goals Goal Patient Goal Type Associated Problems Recent Progress Patient-Stated? Author Blood Pressure < 130/80 Blood Pressure 128/80(2023 11:15 AM CDT) No Héctor Perea M.D. documented as of this encounter Visit Diagnoses Diagnosis Diabetes Mellitus Type 2 Hyperglycemia (HCC) documented in this encounter Additional Health Concerns Assessment Noted Time PHQ-9 Depression Total Score: 7 12/30/19 23 9:32 AM EMPLOYEE REPRESENTATIVE documented as of this encounter Care Teams Flatwork Tier Relationship Specialty Start Date End Date Carmella Montilla M.D. [address] [place] [phone] PCP - General 03/10/22 documented as of this encounter
--- OUTSIDE RECORDS SUMMARY | 2023-12-12 09:52 | XMS_ITS | Encounter Summary ---
Author Organization [facility] Address [address] [place] [address] Care Team Providers Care Barn Manager Name Role Phone Carmella Montilla M.D. Primary Care Provider Reason for Visit * Reason Onset Date Comments PandaDoc Form 11/28/2023 [employer] ( C PAP Order Encounter Details Date Type Department Care Team (Latest Contact Info) Description 11/28/2023 Clinical Communication Department of Family Medicine, [facility], in [place], [place] [address] [place] [phone] Carmella Montilla M.D. [address] [place] [phone] PandaDoc Form ([employer] [facility] ( CPAP Order ) Social History Tobacco Use Types Packs/Day Years [...] declined 06/11/2019 How often do you attend worship or episcopal serv ices? Patient declined 06/11/2019 Do you belong to any clubs o r organizations such as worship groups, unions, fraternal or athletic groups, or [...] your living situation today? I have a [facility] place to live 12/29/2022 Education Answer Date Recorded What is the highest level of school you have completed or the highest degree you have received? 12th grade 10/09/2019 Comments No Sex and Gender Information Value Date Recorded Sex Assigned at Female 05/15/2021 12:03 PM CDT Legal Sex Female 4:24 AM EROSION CONTROL COORDINATOR Gender Identity Female 05/10/2017 9:37 AM CDT Sexual Orientation Straight 05/10/2017 9: 37 AM CDT documented as of this encounter Miscellaneous Notes * Telephone Encounter - Page Rasheed - 11/30/2023 10:52 AM CDT Received back completed form. Form faxed back to the listed facility. Scanned into [facility] * Telephone Encounter - Page Rasheed - 11/28/2023 10:56 AM CDT Requested information was routed to Carmella Montilla MD for signature/review electronically GUN PERFORATOR LOADER: [facility] CANDI Grady PHONE NUMBER: [phone] INFO REQUESTED: CPAP Order INSTRUCTIONS: Fax requested information back to [phone] documented in this encounter Plan of Treatment Upcoming Encounters Date Type Department Care Team (Late st Contact Info) Description 12/20/2023 11:00 AM EROSION CONTROL COORDINATOR Office Visit Department of Family Medicine, [facility], in [place], [place] [address] [place] [phone] Carmella Montilla M.D. [address] [phone] documented as of this encounter Goals Goal Patient Goal Type Associated Problems Recent Progress Patient-Stated? Author Blood Pressure < 130/80 Blood Pressure 128/80(2023 11:15 AM CDT) Héctor Mesa M.D. documented as of this encounter Visit Diagnoses Not on filedocumented in this encounter Additional Health Concerns Assessment Noted Time PHQ-9 Depression Total Score: 7 12/30/19 23 9:32 AM EROSION CONTROL COORDINATOR documented as of this encounter Care Teams Barn Manager Relationship Specialty Start Date End Date Carmella Montilla M.D. [address] [phone] PCP - General 03/10/22 documented as of this encounter
--- OUTSIDE RECORDS SUMMARY | 2023-12-12 09:52 | XMS_ITS | Clinical Summary ---
Author Organization [facility] Address [place], [place] [address] Care Team Providers Care Nonprofit Director Name Role Phone Carmella Montilla MD Primary Care Provi rita Allergies Active Allergy Reactions Criticality Noted Date Comments Cefazolin Itching 01/12/2015 Tolerated ceftriaxone 08/2018 Codeine Nausea Only 01/13/2015 Erythromycin Other - Describe In Comment Field 12/17/2014 Blood in stool Morphine Hives Medium 04/16/2009 Penicillins Rash 08/18/2015 Tolerated ceftriaxone 08/2018 Oxycodone-Acetaminophe n Nausea Only 05/16/2011 Propofol Analogues Shortness Of Breath High 08/20/19 16 For procedures need to get versed and fentanyl Sulfamethoxazole-Trime thoprim Rash 08/18/2015 Soy Protein Other - Describe In Comment Field High 12/17/2014 Breathing problems Soybean Dyspnea 09/03/2011 Sulfa (Sulfonamide Antibiotics) Rash 04/16/2009 Estradiol Rash 12/17/2014 Just the patch, not the pill Medications Medication Sig Dispensed Refills Start Date End Date Status fluticasone-salmet nick (ADVAIR) 500-50 mcg/Dose diskus inhaler Inhale 1 Puff by mouth every 12 hours. 1 Inhaler 0 10/05/2009 Active Additional Information Patient taking differently:1 Puff InhalationBID PRN, Informant: Patient's Recall, Reported on 08/21/2018 traZODone (DESYREL) 50 mg tabletIndications: sleep aid Take 50 mg by mouth at bedtime if needed. Indications: sleep aid Active prazosin (MINIPRESS) 1 mg capsuleIndications :Chronic PTSD with Trauma Nightmares Take 2 mg by mouth at bedtime if needed. Indications: Chronic Post Traumatic Stress Disorder with Trauma-related Nightmares Active polyethylene glycoL (MIRALAX) 17 gram/dose powderIndications: Constipation, unspecified constipation type Take 17 g by mouth once daily if needed for Constipation. 1 jar 0 07/02/2014 Active albuterol HFA (PRO-AIR,VENTOLIN, PROVENTIL) 90 mcg/actuation inhaler Inhale 2 Puffs by mouth every 4 hours if needed for Shortness Of Breath or Wheezing. Active EPINEPHrine (EPIPEN) 0.3 mg/0.3 mL (1:1,000) injection Inject 0.3 mg intramuscular one time if needed for Allergic Reaction. Active estradiol (ESTRACE) 1 mg tabletIndications: hot flashes Take 1 mg by mouth once daily. Indications: hot flashes Active montelukast (SINGULAIR) 10 mg tabletIndications: allergic rhinitis Take 10 mg by mouth once daily. Indications: inflammation of the nose due to an allergy Active meclizine (ANTIVERT) 25 mg tabletIndications: Dizziness Take 1 tablet by mouth 3 times daily if needed for Vertigo. 20 tablet 06/01/2017 Active oxybutynin XL (DITROPAN XL) 10 mg CR tablet Take 10 mg by mouth once daily. 01/24/2018 Active buPROPion (WELLBUTRIN SR) 150 mg Sustained-Release tablet Take 2 Tabs by mouth once daily. 10/10/2016 Active simvastatin (ZOCOR) 20 mg tablet Take 20 mg by mouth once daily in the evening. 3 06/12/2018 Active methylphenidate HCl (RITALIN SR) 20 mg Sustained-Release tablet Take 40 mg by mouth every morning Active methylphenidate HCl (RITALIN) 20 mg tablet Take 40 mg by mouth once daily in the afternoon Active Breo Ellipta 200mcg/25mcg inhaler Inhale 1 Puff by mouth once daily. 12/17/2022 Active albuterol-ipratrop ium (DUONEB) (2.5-0.5 mg) in 3 mL NEBULIZATION solution Inhale 1 Neb via a nebulizer 4 times daily if needed for Wheezing. 02/10/2023 02/10/2024 Active latanoprost (XALATAN) 0.005 % ophthalmic solution INSTILL ONE DROP TO THE AFFECTED EYE(S) AT BEDTIME Active lisinopriL (PRINIVIL; ZESTRIL) 10 mg tablet Take 10 mg by mouth once daily. 01/25/2023 Active Ozempic 0.25 mg or 0.5 mg (2 mg/3 mL) pen Inject 0.5 mg subcutaneous once weekly. 02/10/2023 02/10/2024 Active glipiZIDE extended-release (GLUCOTROL XL) 10 mg Extended-Release tablet Take 10 mg by mouth two times daily before meals. Active fluticasone (50 mcg per actuation) nasal solution (FLONASE) Inhale 1 Ora to both nostrils once daily. Active fexofenadine (GENO) 180 mg tablet Take 180 mg by mouth once daily. Active traMADoL (ULTRAM) 50 mg tabletIndications: Fall, initial encounter,Left arm pain,Contusion of left upper arm, initial encounter Take 1 Tablet (50 mg) by mouth 3 times daily if needed for Pain. 8 Tablet 12/03/2023 Active Active Problems Problem Noted Date Diagnosed Date T2DM (type 2 diabetes mellitus) 08/23/2018 PNA (pneumonia) 08/22/2018 Cholecystitis 08/21/2018 Morbid obesity 04/01/2018 Gastroesophageal reflux disease 07/29/2015 Chronic post-traumatic stress disorder (PTSD) Mixed stress and urge urinary incontinence 08/02 Hyperlipidemia 10/21/2009 Attention deficit disorder (ADD) without hyperac tivity 05/01/2009 Diabetes mellitus, type 2 10/03/2008 Mixed anxiety depressive disorder 08/03/2007 Moderate persistent asthma 09/18/2006 Obstructive sleep apnea syndrome 09/06/2006 Resolved Problems Problem Noted Date Diagnosed Date Resolved Date Status post tonsillectomy and adenoidectomy 07/22/2013 08/21/2018 Encounters Date Type Department Care Team Description 12/03/2023 3:04 PM CDT - 12/03/2023 5:13 PM CDT Emergency [facility] [address] [place] [address] Mary Kay Pinedo PA Fall, initial encounter (Primary Dx); Left arm pain; Contusion of left upper arm, initial encounter Discharge Disposition: Home Self Care 12/03/2023 Travel from Last 3 Months Immunizations Name Administration Dates Next Due DTaP 08/31/2011 Influenza, IIV3 (Age >=3 years) 12/08/2014 Pneumococcal Poly,23-Valent (Pneumovax) 01/23/20 03 Zoster (Zostavax-ZVL, live) 12/08/2014 Family History Medical History Relation Name Comments Diabetes Brother Alive in 2022. Heart attack Brother Valvular heart disease Brother No Known Problems Daughter Diabetes Father at age 73 Cancer-breast Maternal Aunt Cancer-breast Maternal Grandmother Diabetes Maternal Grandmother No Known Problems Mother at ag e 84. Old age. No Known Problems Son Relation Name Status Comments Brother Alive Daughter Alive Father Maternal Aunt Maternal Grandmother Mother Son Alive Social History Tobacco Use Types Packs/Day Years Used Date Smoking Tobacco: Never Passive Smoke Exposure: Never Smokeless Tobacco: Never Tobacco Cessation:Counseling Given: Not Answered Comments:Lifetime nonsmoker. Alcohol Use Standard Drinks/Week Comments Yes 0 (1 standard drink = 0.6 oz pur e alcohol) occasional Sex and Gender Information Value Date Recorded Sex Assigned at Not on file Gender Identity Not on file Sexual Orientation Not on file Obstetrics History Last Filed Vital Signs Vital Sign Reading Time Taken Comments Blood Pressure 135/87 12/03/2023 3:04 PM CDT Pulse 77 12/03/2023 3:04 PM CDT Temperature 36.5 ??C (97.7 ??F) 12/03/2023 3:04 PM CD T Respiratory Rate 20 12/03/2023 3:04 PM CDT Oxygen Saturation 96% 12/03/2023 3:04 PM CDT Inhaled Oxygen Concentration - - Weight 106.6 kg (235 lb) 12/03/2023 3:04 PM CDT Height 157.5 cm (5' 2) 12/03/2023 3:04 PM CDT Body Mass Index 42.98 12/03/2023 3:04 PM CDT Plan of Treatment Health Maintenance Due Date Last Done Comments Tdap 02/08/1971 Depression screening for age 12+ 1972 HIV for age 15-65 02/08/1975 Hepatitis C screening for ag e 18-79 02/08/1978 Tetanus booster 1980 Pap test for age 21-65 02/08/1981 Lipids for age 45-75 02/08/2005 Mammogram for age 45-75 02/08/2005 Zoster (shingles) series for age 50+ (2 of 3) 02/02/2015 12/08/2014 Fecal testing non-DNA (FIT,FOBT,iFOBT) for age 45-75 07/03/2015 07/02/2014 BMI (ht and wt on same day) for age 18+ 07/29/2016 07/30/2015, 07/21/2015 COVID-19 vaccine series (2023- season) 2023 Influenza for age 50-64 10/15/2023 12/08/2014 Pneumococcal series for age 6-64 Aged Out 01/22/2003 No longer eligible b ased on patient's age to complete this topic Procedures Procedure Name Priority Date/Time Associated Diagnosis Comments XR HUMERUS MIN 2 VIEWS LEFT KRISTA 12/03/2023 3:28 PM CDT OCCULT BLOOD IFOBT STOOL STAT 07/02/2014 1:58 PM CDT from Last 3 Months or Most Recently Relevant to Health Maintenance Results * XR HUMERUS MIN 2 VIEWS LEFT (12/03/2023 3:28 PM CDT) Anatomical Region Laterality Modality HUMERI, HUMERUS L [facility] alexander Doctor Unknown GENERAL IMAGING * OCCULT BLOOD IFOBT STOOL (07/02/2014 1:58 PM CDT) STOOL BLOOD ,IFOBT Negative Negative, Invalid 07/02/2014 2:14 PM CDT [facility] Stool specimen (specimen) STOOL SPECIMEN / Unknown Non-Blood / Unknown 07/02/2014 1:58 PM CDT 07/02/2014 2:06 PM CDT [facility] [address] [id number] from Last 3 Months or Most Recently Relevant to Health Maintenance Advance Directives * Full Code (Latest Code Status on File) Date Activated Date Inactivated Comments 09/11/2018 11:46 AM 09/11/2018 9:07 PM * Full Code Date Activated Date Inactivated Comments 08/21/2018 3:03 PM 08/23/2018 4:29 PM Question Answer Comments Code Status Discussion: Not DiscussedPer Juwanin g Order * Full Code Date Activated Date Inactivated Comments 08/20/2015 5:42 AM 08/20/2015 12:47 PM Care Teams Nonprofit Director Relationship Specialty Start Date End Date Montilla, Carmella Yelena[place] [address] [id number] PCP - General Family Practice 12/31/22
== END 2023-12-12 09:47 | disposition home or self-care (01) ==
LOC: MRI 09:49
PROVIDERS: Visit Provider Orthopaedic Surgery
DX: M25.512 Pain in left shoulder (principal); M75.102 Unspecified rotator cuff tear or rupture of left shoulder, not specified as traumatic; M75.02 Adhesive capsulitis of left shoulder; M12.812 Other specific arthropathies, not elsewhere classified, left shoulder
CPT/HCPCS: 73221

== ENCOUNTER 2024-01-16 11:01 | Outpatient (RCR) | payer MEDICARE, BC, SELFPAY ==
--- NOTE | 2024-01-16 12:10 | PT.OPEX ---
PT [place] Outpatient Eval PT [facility] Outpatient Eval Start: 01/16/24 07:10 Freq: Status: Active Protocol: Document 01/16/24 07:35 DAVY (Rec: 01/16/24 12:09 DAVY [id number]) E-signed By Gabriel Brown DPT Physical Therapy Outpatient Evaluation Insurance Information Recert Due Date 04/15/24 Insurance Name Medicare B Medical Diagnosis Rt knee OA RT TKA on 01/30/24 Treating Diagnosis Rt knee pain muscle weakness Referring MD Alyssa Lee Subjective Subjective 12 min late Morelia comes into clinic prior to her R TKA surgery on for her preop visit. She is however undecided if she will proceed with surgery as she is having more LUE pain/ weakness that she has been going to therapy for- states making some progression but is concerned about strength when using a walker post op. Pain Comments 09/22 Date of Surgery (If applicable) 01/30/24 Current Work Status Retired Precautions Treatment Precautions/Contraindications diabetes depression, respiratory problems Objective Other/Pertinent Objective GAIT/FUNCTIONAL MOBILITY ambulates with spc KNEE ROM R 4-111 LE MMT: Hip flexion: R 4+/5 Hip abduction: R 4-/5 knee extension: R 4-/5 Knee Flexion: R 4/5 Dorsiflexion/heel walk: R 5/5 Plantarflexion/toe walk:R 5/5 Assessment Assessment/Impression Pt is a 63 yr old female who presents with concerns of Rt knee pain secondary to OA . Patient also has notable objective findings including limited ROM, impaired gait, decreased strength also likely contributing to the problem. Patient is a good candidate for skilled therapy to target deficits described above. Skilled PT intervention is necessary for use of therapeutic exercise manual therapy, neuromuscular re- education, gait training, and therapeutic activity. Functional impairments include difficulty with: walking standing stairs . See appropriate sections of PT eval for complete list of goals and POC. D/C plan and criteria is for pt to achieve the goals as listed below or until max rehab potential is met. Pt was agreeable with plan of care and goals established. Plan of Care Rehabilitation Potential Good Physical Therapy Goals GOALS Pt will be independent with HEP within 1 visit to allow for independence and continued improvement past formal therapy Coordination/Communication With Referral Source Treatment Plan/Direct Interventions Therapeutic Exercises Frequency/Duration 1 visit prior to surgery, post op care at [facility] PT Patient Will Be Discharged From Therapy Completion of LTG(s), Independent w/HEP Evaluation Billing Untimed Code Treatment Minutes 15 Complexity Moderate Certification Information Initial Certification Date 01/16/24 Ending Certification Date 04/15/24 Provider Signature Required Yes Provider Signature Shows Agreement With POC & Medical Necessity Physician NPI Number Write NPI# Here Physician Comment/Change : Physician Signature & Date Requested Please Sign/Date Here
== END 2024-04-23 08:41 | disposition home or self-care (01) ==
PROVIDERS: PCP Orthopaedic Surgery; Visit Provider Orthopaedic Surgery
DX: M17.11 Unilateral primary osteoarthritis, right knee (principal); Z96.651 Presence of right artificial knee joint; M25.561 Pain in right knee; M62.81 Muscle weakness (generalized); Z51.89 Encounter for other specified aftercare
CPT/HCPCS: 97110; 97162

== ENCOUNTER 2024-05-30 07:44 | Day surgery (SDC) | payer MEDICARE, BC, SELFPAY ==
[2024-05-30] VITALS (20 sets, daily range): BP systolic 97–138; BP diastolic 55–76; PULSE 65–92; RESP 12–18; TEMP 35.7–37; O2SAT 91–99; BMI 38.5
[2024-05-30] MEDS: LACTATED RINGERS 1000 ML 1,000 ML 100 ML IV (08:33)
[2024-05-30] MEDS: SODIUM CHLORIDE 0.9 % (FLUSH) 10 ML SYRINGE IVF (08:33)
[2024-05-30] MEDS: ACETAMINOPHEN 500 MG TABLET 1000 MG PO ×3 (10:05→21:56)
[2024-05-30] MEDS: CELECOXIB 200 MG CAPSULE PO (10:05)
[2024-05-30] MEDS: OXYCODONE (CR) 10 MG TAB.ER.12H PO (10:05)
--- NOTE | 2024-05-30 10:08 | SUR.PREOP ---
TIME?OUT:?1008 PT/RN/MDA?VERIFICATION?OF?SURGICAL?SITE,?PROCEDURE,?AND?CONSENT OBTAINED?PRIOR?TO?INVASIVE?PROCEDURE.
[2024-05-30] MEDS: fentaNYL 100 MCG/2 ML inj IVP (10:12)
[2024-05-30] MEDS: MIDAZOLAM HCL 1 MG/ML inj IVP (10:12)
--- NOTE | 2024-05-30 10:25 | P.ANES_ITS ---
Anesthesia Charges Start Date/Time Anesthesia Start Date: 05/30/24 Anesthesia Start Time: 10:46 Stop Date/Time Anesthesia Stop Date: 05/30/24 Anesthesia Stop Time: 13:05 Coding CPT Codes CPT Codes: ANESTH KNEE ARTHROPLASTY - 87300 ([id number]) P3 - PATIENT W/SEVERE SYS DISEASE, QK - MARINE ENGINE MECHANIC 2-4 CNCRNT ANES PROC, QX - HEALTH EQUIPMENT SERVICER SVC W/ MD MED DIRECTION
--- NOTE | 2024-05-30 10:25 | W.PM.NB ---
Nerve Block Nerve Block Time Seen by Provider: 10:15 Date Seen: 05/30/24 Type of block requested by surgeon for post-operative analgesia: adductor canal Side: right Time out performed: Yes Verification of patient name: Yes Verification of date of : Yes Site marking: site marked Name of person performing procedure: Hayden Continuous monitoring Was continuous monitoring of O2 sat, B/P, uniform cap operator, recorded every 15 minutes?: Yes Procedure Checklist: sterile prep, needles and gloves Ultrasound guided. Images saved: Yes Medications given in 5ml increments after negative aspiration: Marcaine %: 0.25 mL: 15 Needle gauge: 20 Precedex (mcg): 25 Patient tolerated procedure well: Yes Block Charges Block Charge (with Pro Fee): Femoral Nerve Use of Ultrasound Machine for Block: Yes- US Guidance/pain block
--- NOTE | 2024-05-30 10:25 | W.PM.NB ---
Nerve Block Nerve Block Time Seen by Provider: 10:15 Date Seen: 05/30/24 Type of block requested by surgeon for post-operative analgesia: geniculars Side: right Time out performed: Yes Verification of patient name: Yes Verification of date of : Yes Site marking: site marked Name of person performing procedure: Hayden Continuous monitoring Was continuous monitoring of O2 sat, B/P, ekg monitor tech, recorded every 15 minutes?: Yes Procedure Checklist: sterile prep, needles and gloves Ultrasound guided. Images saved: Yes Medications given in 5ml increments after negative aspiration: Marcaine %: 0.25 mL: 9 Needle gauge: 25 Patient tolerated procedure well: Yes Block Charges Block Charge (with Pro Fee): Genicular Nerve Block
--- NOTE | 2024-05-30 10:25 | W.ANESCHARGE ---
Anesthesia Charges Start Date/Time Anesthesia Start Date: 05/30/24 Anesthesia Start Time: 10:46 Stop Date/Time Anesthesia Stop Date: 05/30/24 Anesthesia Stop Time: 13:05 Coding CPT Codes CPT Codes: ANESTH KNEE ARTHROPLASTY - 86108 ([id number]) P3 - PATIENT W/SEVERE SYS DISEASE, QK - DUST COLLECTOR ATTENDANT 2-4 CNCRNT ANES PROC, QX - PRINT FINISHING WORKER SVC W/ MD MED DIRECTION
--- NOTE | 2024-05-30 10:54 | SUR.OPER ---
PATIENT QUESTIONS ANSWERED SATISFACTORILY PREOPERATIVELY.? PATIENT BROUGHT TO OR #3 PER CART AFTER ADMINISTRATION OF A BLOCK.? Patient positioned supine on OR #3 bed.? The perioperative?team supported arms bilaterally on arm boards.? Final approval of positioning by surgeon.?
[2024-05-30] MEDS: CEFAZOLIN 1 GM inj IVP (11:04)
[2024-05-30] MEDS: TRANEXAMIC ACID 100 MG/ML INJ 1000 MG IV (11:06)
--- NOTE | 2024-05-30 12:44 | CRLHL7_ITS ---
For Patients: As a result of the Century Cures Act, medical imaging exams and procedure reports are released immediately into your electronic medical record. You may view this report before your referring provider. If you have questions, please contact your health care provider. Indication: Postop total knee arthroplasty Technique: Right knee 3 views. Comparison: Right knee radiograph on December 06, 2023 Findings: Bones: Interval right total knee arthroplasty with patellar resurfacing. Hardware is intact with no perihardware lucency to suggest hardware loosening. Anatomic alignment. Soft tissues: Postsurgical changes about the knee with soft tissue swelling/air and small suprapatellar joint effusion. Impression: Right total knee arthroplasty hardware is intact without complication. Anatomic alignment. Dictated by Catherine Perez MD @ 06/03/2024 1:10:55 AM (Electronically Signed)
--- NOTE | 2024-05-30 12:47 | P.ORPRC_ITS ---
Procedure Note Date of procedure: 05/30/24 Procedure: PREOPERATIVE DIAGNOSIS: Right knee osteoarthritis POSTOPERATIVE DIAGNOSIS: Right knee osteoarthritis NAME OF OPERATION: Right total knee arthroplasty SURGEON: Marcos Hickey MD DRILLING MANAGER: Rosey Archer PA-C ANESTHESIA: Spinal ESTIMATED BLOOD LOSS: 0 mL COMPLICATIONS: None SPECIMENS: None DRAINS: None PREOPERATIVE ANTIBIOTICS: Ancef 2 grams, antibiotic impregnated cement IMPLANTS: 1. J&J Attune revision CRS #4 posterior stabilized femur, 14 mm x 50 mm cemented stem 2. #4 revision CRS fixed-bearing tibia, 14 mm x 50 mm cemented stem 3. #4 posterior stabilized, 5 mm fixed-bearing polyethylene 4. 35 patella INDICATIONS: The patient is a 64-year-old with a longstanding history of severe, unrelenting right knee pain secondary to end-stage (grade IV) right knee osteoarthritis. Despite appropriate nonoperative management, including activity modification, anti-inflammatories, wzyn-sag-ootnwro pain medication, bracing, physical therapy, and injections they continue to have pain and disability. Operative intervention was offered. The risks, benefits and expected outcomes were discussed in detail. These included but were not limited to: Infection, bleeding, injury to blood vessel or nerve, venous thromboembolism. All questions were answered to their satisfaction. Use of an psychologist research assistant was necessary throughout the case for patient positioning and safety, soft tissue retraction, and closure. A modifier 22 should be added to this case. The patient weighs 96 kg with a BMI of 38. In order to reduce the risk of aseptic loosening stemmed components were used. This added time and cost to complete the case. PROCEDURE: Spinal anesthesia was administered. The patient was placed supine on the operating table. The psychologist research assistant made sure the patient was positioned appropriately. The lower extremity was prepped and draped in the usual sterile fashion. The limb was exsanguinated with the Darshan bandage. The pneumatic tourniquet was inflated to 300 mmHg. A standard anterior incision was made with the knee in flexion. Subcutaneous dissection was sharply taken through fascial layer #1. Full-thickness medial and lateral flaps were elevated. The psychologist research assistant retracted the soft tissues and protected them throughout the case. A standard subvastus approach was made. The patella was subluxed. The infrapatellar fat pad was debrided. The menisci and cruciate ligaments were sharply d?brided. Marginal osteophytes were d?brided with the rongeur. The drill was used to penetrate the femoral canal. The canal was aspirated and irrigated with pulse lavage. The intramedullary femoral guide was placed for a 5-degree valgus cut, removing 10 mm off the distal femur. The saw was used to make the cut. Whitesides line and the trans epicondylar axis were marked. The femoral sizing guide was pinned onto the distal femur. Three degrees of external rotation nicely parallels the transepicondylar axis. Pins were placed for posterior referencing. The four-in-one cutting guide was pinned onto the distal femur. The anterior, posterior, and chamfer cuts were made. The psychologist research assistant protected the collateral ligaments. The revision trial was placed. The box cuts were made. The drill was used x2. The stemmed, boxed trial was placed and was an excellent fit. Attention was then turned to the proximal tibia. The extramedullary tibial guide was placed for a neutral varus/valgus cut with 5 degrees of posterior slope, removing 0 mm based off the medial tibial surface. The psychologist research assistant protected the collateral ligaments and the neurovascular bundle. The saw was used to make the cut. Trial components were placed. The knee was nicely balanced in both flexion and extension. The trial components were removed. The tray was placed in appropriate rotation, parallel to our tibial cutting pins. It was pinned by the psychologist research assistant and the drill x2 was used. The stemmed tibial trial was placed. The punch was used. The tray was removed. The punch was used again. Attention was then turned to the patella. [place] patellar thickness was 18 mm. The lobster claw resection guide was used with the 7.5 mm sara. The saw was used to make the cut, on top of the guide, resecting 3 mm. We then freehand cut another 1mm. Drill holes were made by the psychologist research assistant. The trial was placed and was an excellent fit. Cancellous surfaces were irrigated with pulse lavage and thoroughly dried by the psychologist research assistant. We cemented the tibial component, then the femoral component. We impacted the 5 mm polyethylene onto the tibial tray. The knee was brought into full extension. We then cemented the patellar component. Excessive cement was removed. The cement was allowed to harden. The knee was taken through a range of motion and was found to be nicely balanced in both flexion and extension. The patella tracks centrally. The psychologist research assistant did a three minute dilute Betadine solution soak. The psychologist research assistant irrigated the wound with 3 liters of normal saline via pulse lavage. The psychologist research assistant reapproximated the extensor mechanism with #1 Vicryl in an interrupted [id number]-bplxg fashion. The psychologist research assistant then ran the extensor mechanism with a #1 PDO Stratafix. The psychologist research assistant closed the subcutaneous tissues with a 3-0 Stratafix and the skin with a running 3-0 Stratafix in a subcuticular fashion. Glue was used to seal the skin. The psychologist research assistant placed a dry dressing. Sponge and needle counts were correct x2. The patient tolerated the procedure well. There were no apparent complications. They were carefully transferred to the hospital bed and taken to the postanesthesia care unit in satisfactory condition. PLAN: The patient will be mobilized with physical therapy. Aspirin will be used for DVT prophylaxis. They will be discharged to home once medically appropriate.
--- NOTE | 2024-05-30 13:01 | P.ANES_ITS ---
Anesthesia Charges Start Date/Time Anesthesia Start Date: 05/30/24 Anesthesia Start Time: 10:46 Stop Date/Time Anesthesia Stop Date: 05/30/24 Anesthesia Stop Time: 13:05 Coding CPT Codes CPT Codes: ANESTH KNEE ARTHROPLASTY - 28604 ([id number]) P3 - PATIENT W/SEVERE SYS DISEASE, QK - RETREAD OPERATOR 2-4 CNCRNT ANES PROC, QX - PUBLIC DEFENDER SVC W/ MD MED DIRECTION
--- NOTE | 2024-05-30 13:01 | W.ANESCHARGE ---
Anesthesia Charges Start Date/Time Anesthesia Start Date: 05/30/24 Anesthesia Start Time: 10:46 Stop Date/Time Anesthesia Stop Date: 05/30/24 Anesthesia Stop Time: 13:05 Coding CPT Codes CPT Codes: ANESTH KNEE ARTHROPLASTY - 32364 ([id number]) P3 - PATIENT W/SEVERE SYS DISEASE, QK - HEARING THERAPY TEACHER 2-4 CNCRNT ANES PROC, QX - BOTTOM LIQUOR ATTENDANT SVC W/ MD MED DIRECTION
--- NOTE | 2024-05-30 13:43 | SUR.PHASEI ---
patient met discharge criteria per anesthesia
[2024-05-30] MEDS: ONDANSETRON 2 MG/ML inj 4 MG IVP (15:16)
[2024-05-30] MEDS: HYDROmorphone 0.5 mg/0.5 ml inj IVP (15:17)
[2024-05-30] MEDS: PROMETHAZINE 25 MG/ML INJ 12.5 MG IVP (17:08)
--- NOTE | 2024-05-30 17:24 | PM.IMCN1 ---
Date of Consult Patient: Other Consult date: 05/30/24 Requesting Physician: Orthopedics Primary Care Provider: Carmella Montilla MD ([facility]) Consult Narrative Reason for consult: Medical management of comorbidities Narrative: Alyssa Lee is a 64 year old female who presented to the hospital today for an elective R TKA. There were no surgical or anesthetic complications noted during procedure. Patient's H&P reviewed, PCP is Dr. Carmella Montilla at [facility] in [place]. Past medical history significant for: Moderate persistent asthma, type 2 DM, ADHD, GERD, hyperlipidemia, WILBER on CPAP. Occasionally requires steroids for asthma exacerbation; last took 3 days of prednisone approximately 10 days ago. History of blood clots: No Postoperative plan: Home with Review of Systems Status of ROS: Reports: 10 or more systems reviewed and unremarkable except as noted in History and below [facility] Medical History (Updated 05/30/24 @ 20:08 by Jackie Ramos MD) Posttraumatic stress disorder ?F43.10 - Post-traumatic stress disorder, unspecified (ICD-10) Anxiety ?F41.9 - Anxiety disorder, unspecified (ICD-10) Obstructive sleep apnea ?G47.33 - Obstructive sleep apnea (adult) (pediatric) (ICD-10) Hyperlipidemia ?E78.5 - Hyperlipidemia, unspecified (ICD-10) GERD (gastroesophageal reflux disease) ?K21.9 - Gastro-esophageal reflux disease without esophagitis (ICD-10) Attention deficit disorder (ADD) ?F98.8 - Other specified behavioral and emotional disorders with onset usually occurring in childhood and adolescence (ICD-10) Morbid obesity with BMI of 40.0-44.9, adult ?E66.01 - Morbid (severe) obesity due to excess calories (ICD-10) ?Z68.41 - Body mass index [BMI] 40.0-44.9, adult (ICD-10) Soy allergy ?Z91.018 - Allergy to other foods (ICD-10) Back pain ?M54.9 - Dorsalgia, unspecified (ICD-10) Nerve damage ?T14.8XXA - Other injury of unspecified body region, initial encounter (ICD-10) Vertigo ?R42 - Dizziness and giddiness (ICD-10) Diabetes ?E11.9 - Type 2 diabetes mellitus without complications (ICD-10) Elevated cholesterol ?E78.00 - Pure hypercholesterolemia, unspecified (ICD-10) High blood pressure ?I10 - Essential (primary) hypertension (ICD-10) Asthma ?J45.909 - Unspecified asthma, uncomplicated (ICD-10) Surgical History (Updated 05/30/24 @ 20:08 by Jackie Ramos MD) Status post right knee replacement ?Z96.651 - Presence of right artificial knee joint (ICD-10) History of arthroplasty of right knee (05/30/24) ?Z96.651 - Presence of right artificial knee joint (ICD-10) History of arthroscopy of right knee ?Z98.890 - Other specified postprocedural states (ICD-10) History of cholecystectomy (09/11/18) ?Z90.49 - Acquired absence of other specified parts of digestive tract (ICD-10) S/P left knee arthroscopy (01/12/10) ?Z98.890 - Other specified postprocedural states (ICD-10) History of carpal tunnel surgery of left wrist (01/13/15) ?Z98.890 - Other specified postprocedural states (ICD-10) S/P trigger finger release (12/22/14) ?Z98.890 - Other specified postprocedural states (ICD-10) H/O section ?Z98.891 - History of uterine scar from previous surgery (ICD-10) History of tonsillectomy ?Z90.89 - Acquired absence of other organs (ICD-10) H/O: hysterectomy (03/2005) ?Z90.710 - Acquired absence of both cervix and uterus (ICD-10) History of appendectomy ?Z90.49 - Acquired absence of other specified parts of digestive tract (ICD-10) Family History Father Diabetes Brother Diabetes Heart disease Myocardial infarction Maternal Grandmother Breast cancer Diabetes Aunt Breast cancer Social History (Reviewed 12/18/23 @ 10:33 by Vicenta Lombardo ~ BELT LOOP MACHINE OPERATOR, BELT LOOP MACHINE OPERATOR) Narrative: - What is your current living situation?: I presently have a place to live In the past 12 months, utilities in danger of being shut off: no In past 12 months, lack of transportation kept you from medical appts, meetings, work, or getting things needed for daily living: no In the past 12 mos, have been you worried that your food would run out before you had money to buy more?: never true In the past 12 mos, the food you bought just didn't last and you didn't have money to buy more?: never true Smoking Status: Never smoker Do you use any of these nicotine containing products: None Second hand tobacco smoke exposure: No How often do you have a drink containing alcohol: never AUDIT-C Alcohol total score: 0 Non-prescribed substance use: denies use Caffeine: Yes How often does anyone, including family, friends and others, physically hurt you: never How often does anyone, including family, friends and others, insult or talk down to you: never How often does anyone, including family, friends and others, threaten you with harm: never How often does anyone, including family, friends and others, scream or curse at you: never service: No Meds Home Medications and Allergies Home Medications ?Medication ?Instructions ?Recorded ?Confirmed ?Type albuterol sulfate 90 mcg/actuation 2 inh inhalation Q4H PRN 09/29/21 05/30/24 History aerosol inhaler epinephrine 0.3 mg/0.3 mL 0.3 ml IM .as needed PRN 09/29/21 05/30/24 History injection, auto-injector estradiol 1 mg tablet 1 mg PO DAILY 09/29/21 05/30/24 History ibuprofen 200 mg capsule 200 mg PO Q6H PRN 09/29/21 05/30/24 History meclizine 25 mg tablet 25 mg PO TID PRN 09/29/21 05/30/24 History methylphenidate HCl 10 mg tablet 10 mg PO DAILY PRN 09/29/21 05/30/24 History methylphenidate HCl 20 mg tablet 40 mg PO DAILY 09/29/21 05/30/24 History montelukast 10 mg tablet 10 mg PO DAILY 09/29/21 05/30/24 History oxybutynin chloride 10 mg 10 mg PO DAILY 09/29/21 05/30/24 History tablet,extended release 24 hr prazosin 1 mg capsule 2 mg PO HS PRN 09/29/21 05/30/24 History trazodone 50 mg tablet 50 mg PO HS PRN 09/29/21 05/30/24 History bupropion HCl 300 mg 24 hr tablet, 300 mg PO QAM 12/06/23 05/30/24 History extended release clonazepam 1 mg tablet 1 mg PO TID 12/06/23 05/30/24 History fluticasone 250 mcg-salmeterol 50 1 ea inhalation BID 12/06/23 05/30/24 History mcg/dose blistr powdr for inhalation glipizide 10 mg tablet, extended 10 mg PO BIDWM 12/06/23 05/30/24 History release 24 hr ipratropium 0.5 mg-albuterol 3 mg 3 ml inhalation QID PRN wheezing 12/06/23 05/30/24 History (2.5 mg base)/3 mL nebulization soln latanoprost 0.005 % eye drops 1 drp ophthalmic (eye) QPM 12/06/23 05/30/24 History lisinopril 10 mg tablet 10 mg PO DAILY 12/06/23 05/30/24 History omeprazole 40 mg capsule,delayed 40 mg PO QAM 12/06/23 05/30/24 History release prednisone 20 mg tablet 40 mg PO BID PRN 12/06/23 05/30/24 History semaglutide 0.25 mg or 0.5 mg (2 0.5 mg subcut Q7D 12/06/23 05/30/24 History mg/3 mL) subcutaneous pen injector (Ozempic) simvastatin 40 mg tablet 40 mg PO QPM 12/06/23 05/30/24 History Allergies Allergy/AdvReac Type Severity Reaction Status Date / Time propofol Allergy Severe Verified 05/30/24 08:16 soy Allergy Severe Difficulty Verified 05/30/24 08:16 Breathing amoxicillin Allergy Mild Rash Verified 05/30/24 08:16 morphine Allergy Unknown Verified 05/30/24 08:16 codeine Allergy Verified 05/30/24 08:16 erythromycin base Allergy stomach Verified 05/30/24 08:16 Penicillins Allergy Verified 05/30/24 08:16 Sulfa (Sulfonamide Allergy Verified 05/30/24 08:16 Antibiotics) sulfamethoxazole (From Allergy Verified 05/30/24 08:16 Septra) trimethoprim (From Septra) Allergy Verified 05/30/24 08:16 Blue cheese mold Allergy Severe Difficulty Uncoded 01/17/24 14:39 Breathing MYCINES Allergy Unknown Uncoded 01/17/24 14:39 Exam Narrative: Exam Narrative: GEN: Alert and oriented, sitting comfortably in bed and speaking in full sentences HEENT: EOMIs bilaterally, no scleral icterus CV: RRR, No concerning murmurs R: LCTA bilaterally without concerning wheezing, air movement adequate Ext: wwp, no concerning edema, incision over right knee is bandaged, clean and dry Skin: No concerning skin lesions or rashes on exposed skin Neuro: Nonfocal Psych: Appropriate Const: Vital Signs, click to edit/add: Vital Signs - 24 hr 05/30/24 07:45 05/30/24 10:10 05/30/24 10:30 Temperature Pulse Rate 89 88 88 Respiratory Rate 18 16 14 Blood Pressure 126/70 131/75 117/63 Pulse Oximetry 95 96 96 Oxygen Delivery Me thod Room Air Nasal Cannula Nasal Cannula Oxygen Flow Rate 2 2 05/30/24 13:01 05/30/24 13:05 05/30/24 13:10 Temperature 98.6 F 98.6 F 98.6 F Pulse Rate 65 76 76 Respiratory Rate 16 16 16 Blood Pressure 138/70 123/70 98/69 Pulse Oximetry 93 96 96 Oxygen Delivery Me thod Room Air Room Air Room Air Oxygen Flow Rate 05/30/24 13:15 05/30/24 13:20 05/30/24 13:25 Temperature 98.6 F 98.6 F 97.3 F L Pulse Rate 73 73 73 Respiratory Rate 14 18 15 Blood Pressure 115/74 114/67 105/67 Pulse Oximetry 92 96 92 Oxygen Delivery Me thod Nasal Cannula Nasal Cannula Room Air Oxygen Flow Rate 2 2 05/30/24 13:30 05/30/24 13:54 05/30/24 13:54 Temperature 97.3 F L 96.2 F L 96.6 F L Pulse Rate 71 74 74 Respiratory Rate 14 14 12 Blood Pressure 114/68 122/75 119/70 Pulse Oximetry 91 92 96 Oxygen Delivery Me thod Room Air Room Air Room Air Oxygen Flow Rate 05/30/24 13:54 05/30/24 14:46 05/30/24 15:00 Temperature 96.3 F L 96.3 F L Pulse Rate 70 71 79 Respiratory Rate 13 12 Blood Pressure 97/58 L 101/55 L 107/74 Pulse Oximetry 93 94 Oxygen Delivery Me thod Room Air CPAP Oxygen Flow Rate 05/30/24 15:00 05/30/24 15:30 05/30/24 16:00 Temperature 96.5 F L Pulse Rate 76 76 Respiratory Rate 14 14 14 Blood Pressure 134/69 124/75 Pulse Oximetry 96 96 97 Oxygen Delivery Me thod Room Air Room Air Room Air Oxygen Flow Rate 05/30/24 17:00 Temperature 96.7 F L Pulse Rate 78 Respiratory Rate 16 Blood Pressure 126/76 Pulse Oximetry 97 Oxygen Delivery Me thod Room Air Oxygen Flow Rate Assessment and Plan Assessment and plan (1) Status post right knee replacement: Problem comment: - 05/30/24, Dr. Hickey Status: Acute Plan - pain management and prophylaxis per orthopedic surgery team - continue home medications for comorbidities - anticipate routine postoperative course
[2024-05-30] MEDS: CEFAZOLIN 2 GM in 0.9 % SODIUM CHLORIDE Mini-bag 100 ML IVPB (18:47)
--- NOTE | 2024-05-30 18:54 | PC.NURSE ---
End of Shift: Patient pleasant and cooperative, A&O. VSS, afebrile. spO2 maintained above 90% on RA. Patient reports pain in her right knee this shift, managed with PRN medication, see MAR. Pt reports feeling nauseas this shift, emesis x2, managed with PRN medication, see MAR. Pt has voided after surgery. Tolerating regular diet. 1A with walker and gait belt.
[2024-05-30] MEDS: SENNOSIDES 1 TAB TABLET 2 TAB PO (20:34)
[2024-05-30] MEDS: OXYCODONE 5 MG TABLET PO (20:34)
[2024-05-30] MEDS: ASPIRIN 81 MG TABLET EC PO (20:34)
[2024-05-31] MEDS: CEFAZOLIN 2 GM in 0.9 % SODIUM CHLORIDE Mini-bag 100 ML IVPB (03:10)
[2024-05-31 03:15] VITALS: BP 132/69; PULSE 91; RESP 16; TEMP 36.5; O2SAT 95
[2024-05-31] MEDS: OXYCODONE 5 MG TABLET PO ×4 (03:17→12:08)
[2024-05-31] MEDS: ACETAMINOPHEN 500 MG TABLET 1000 MG PO ×2 (03:52→11:30)
--- NOTE | 2024-05-31 06:12 | PC.NURSE ---
End of shift [id number]: upon initial assessment pt sitting up in bed just finishing dinner. tolerated diet throughout night denying any n/v. VSS w/ sats >90% on RA. rating pain 2-7/10 in right knee. see eMAR for interventions. pt declined scds overnight. ambulating to bathroom w/ sba fww and GB. tolerating well. voiding adequate amounts. saline locked. at bedside overnight. dressing to knee c/d/i. +cms w/ string plantar/dorsi flexion. intermittent ice to site. using call light appropriately.
[2024-05-31 06:26] LABS: Basophils Percent Auto 0.2 % (0.0-3.0); Hematocrit 41.5 % (33.0-51.0); Hemoglobin* 13.7 gm/dL (12.0-16.0); Immature Granulocytes Pct Auto 0.2 %; Lymphocytes Percent Auto 6.8 % (20-44); Mean Corpuscular HGB Conc 33 gm/dL (32-36); Mean Corpuscular Hemoglobin 31 pg (26-34); Mean Corpuscular Volume 94 fL (80-100); Monocytes Percent Auto 8.6 % (0.0-11.0); Neutrophils Percent Auto 84.2 % (42.0-72.0); Platelet Count* 283 K/uL (140-440); RDW Coefficient of Variation % 12.4 % (11.5-15.5); White Blood Count* 13.13 K/uL (4.50-11.00)
[2024-05-31 06:28] LABS: Slide Review Reflex No
[2024-05-31 06:38] LABS: Potassium* 4.3 mmol/L (3.6-5.1); Sodium* 132 mmol/L (135-149)
[2024-05-31 06:41] LABS: Blood Urea Nitrogen* 16 mg/dL (7-30); Creatinine* 0.6 mg/dL (0.5-1.5); Est. Creatinine Clearance* 44.95; Estimated Glomerular Filt Rate 100 ml/min
[2024-05-31 07:00] VITALS: BP 113/72; RESP 16; TEMP 36.5; O2SAT 95
[2024-05-31 07:02] LABS: INR 0.93 (0.91-1.10); Prothrombin Time 13.3 Seconds
[2024-05-31] MEDS: ONDANSETRON 2 MG/ML inj 4 MG IVP ×2 (08:05→12:08)
--- NOTE | 2024-05-31 08:14 | PM.ORPN ---
Subjective Subjective Time Seen by Provider: 08:14 Date Seen: 05/31/24 Principal diagnosis: Status post right knee replacement Interval history: Morelia is comfortable this morning. She is accompanied by her . She will be discharging to home today. She had vomiting postop yesterday. She currently denies nausea and vomiting. She has ambulated to her restroom several times which went well. Ortho Exam Narrative Exam Narrative: Alert and oriented x3. Patient is in no acute distress. Converses without labored breathing. Hearing is grossly intact. Ambulates with a walker. Examination of the right knee shows the dressing is intact. No erythema or warmth or sign of infection. Mild soft tissue edema. She is able to straight leg raise. Calves are soft and nontender. CMS is intact right lower extremity. She is able to flex and extend her knee. Very slight edema about the pre tibia area. Const Vital Signs, click to edit/add: Vital Signs - 24 hr 05/30/24 10:10 05/30/24 10:30 05/30/24 13:01 Temperature 98.6 F Pulse Rate 88 88 65 Pulse Rate [Left Pulse Oximeter] Respiratory Rate 16 14 16 Blood Pressure 131/75 117/63 138/70 Blood Pressure [Left Arm] Pulse Oximetry 96 96 93 Oxygen Delivery Method Nasal Cannula Nasal Cannula Room Air Oxygen Flow Rate 2 2 05/30/24 13:05 05/30/24 13:10 05/30/24 13:15 Temperature 98.6 F 98.6 F 98.6 F Pulse Rate 76 76 73 Pulse Rate [Left Pulse Oximeter] Respiratory Rate 16 16 14 Blood Pressure 123/70 98/69 115/74 Blood Pressure [Left Arm] Pulse Oximetry 96 96 92 Oxygen Delivery Method Room Air Room Air Nasal Cannula Oxygen Flow Rate 2 05/30/24 13:20 05/30/24 13:25 05/30/24 13:30 Temperature 98.6 F 97.3 F L 97.3 F L Pulse Rate 73 73 71 Pulse Rate [Left Pulse Oximeter] Respiratory Rate 18 15 14 Blood Pressure 114/67 105/67 114/68 Blood Pressure [Left Arm] Pulse Oximetry 96 92 91 Oxygen Delivery Method Nasal Cannula Room Air Room Air Oxygen Flow Rate 2 05/30/24 13:54 05/30/24 13:54 05/30/24 13:54 Temperature 96.2 F L 96.6 F L 96.3 F L Pulse Rate 74 74 70 Pulse Rate [Left Pulse Oximeter] Respiratory Rate 14 12 13 Blood Pressure 122/75 119/70 97/58 L Blood Pressure [Left Arm] Pulse Oximetry 92 96 93 Oxygen Delivery Method Room Air Room Air Room Air Oxygen Flow Rate 05/30/24 14:46 05/30/24 15:00 05/30/24 15:00 Temperature 96.3 F L Pulse Rate 71 79 Pulse Rate [Left Pulse Oximeter] Respiratory Rate 12 14 Blood Pressure 101/55 L 107/74 Blood Pressure [Left Arm] Pulse Oximetry 94 96 Oxygen Delivery Method CPAP Room Air Oxygen Flow Rate 05/30/24 15:30 05/30/24 16:00 05/30/24 17:00 Temperature 96.5 F L 96.7 F L Pulse Rate 76 76 78 Pulse Rate [Left Pulse Oximeter] Respiratory Rate 14 14 16 Blood Pressure 134/69 124/75 126/76 Blood Pressure [Left Arm] Pulse Oximetry 96 97 97 Oxygen Delivery Method Room Air Room Air Room Air Oxygen Flow Rate 05/30/24 18:00 05/30/24 20:00 05/30/24 22:47 Temperature 96.5 F L Pulse Rate 80 80 Pulse Rate [Left Pulse Oximeter] Respiratory Rate 16 16 Blood Pressure 120/59 L 129/63 Blood Pressure [Left Arm] Pulse Oximetry 99 99 Oxygen Delivery Method Room Air Room Air Oxygen Flow Rate 05/30/24 22:48 05/31/24 03:15 Temperature 97.4 F L 97.7 F Pulse Rate Pulse Rate [Left Pulse Oximeter] 92 91 Respiratory Rate 16 16 Blood Pressure Blood Pressure [Left Arm] 133/71 132/69 Pulse Oximetry 99 95 Oxygen Delivery Method Room Air Room Air Oxygen Flow Rate Assessment and Plan Assessment and plan (1) Status post right knee replacement: Problem details: - 05/30/24, Dr. Hickey Status: Acute Assessment and Plan: Plan for discharge is today to home if they meet discharge criteria. DVT prophylaxis includes aspirin 81 mg twice daily x1 month, Compression stockings as needed for swelling. Frequent ambulation, every hour throughout the day. Remove dressing in 1 week. Observe wound and phone Orthopedics with any questions or concerns Return to clinic in 1 week for a wound check Return to clinic in 6 weeks with surgeon Minimize narcotic use. Wean off and discontinue soon as possible. Activities as tolerated. No strenuous activity. Outpatient physical therapy as scheduled. Ice and elevate the operative extremity. No restriction on ice.
[2024-05-31 11:00] VITALS: RESP 18
[2024-05-31] MEDS: OMEPRAZOLE 20 MG CAPSULE DR 40 MG PO (11:28)
[2024-05-31] MEDS: clonazePAM 0.5 MG TABLET 1 MG PO (11:29)
[2024-05-31] MEDS: oxyBUTYnin chloride 5 MG TAB.ER.24 10 MG PO (11:29)
[2024-05-31] MEDS: MONTELUKAST 10 MG TABLET PO (11:29)
[2024-05-31] MEDS: SENNOSIDES 1 TAB TABLET 2 TAB PO (11:29)
[2024-05-31] MEDS: ASPIRIN 81 MG TABLET EC PO (11:30)
[2024-05-31] MEDS: buPROPion XL 150 MG TABLET 300 MG PO (11:30)
== END 2024-05-31 12:43 | disposition home or self-care (01) ==
LOC: OR 07:47 → MEDSURG 07:48
PROVIDERS: PCP Student in an Organized Health Care Education/Training Program; Visit Provider Orthopaedic Surgery
PROC: (CPT 27447; principal; 2024-05-30 10:15)
DX: M17.11 Unilateral primary osteoarthritis, right knee (principal); G89.18 Other acute postprocedural pain; E11.9 Type 2 diabetes mellitus without complications; G47.33 Obstructive sleep apnea (adult) (pediatric); Z99.89 Dependence on other enabling machines and devices; I10 Essential (primary) hypertension; E66.01 Morbid (severe) obesity due to excess calories; Z68.38 Body mass index [BMI] 38.0-38.9, adult; Z79.85 Long-term (current) use of injectable non-insulin antidiabetic drugs; J45.40 Moderate persistent asthma, uncomplicated; K21.9 Gastro-esophageal reflux disease without esophagitis; E78.5 Hyperlipidemia, unspecified; F41.9 Anxiety disorder, unspecified; Z96.651 Presence of right artificial knee joint; Z82.49 Family history of ischemic heart disease and other diseases of the circulatory system; Z79.82 Long term (current) use of aspirin
CPT/HCPCS: 27447; 01402; 36415; 64447; 64454; 73560; 76942; 82565; 82962; 84132; 84295; 84520; 85025; 85610; 97116; 97161; 97165; 97530; 97535; A9270; C1776; J0665; J0690; J1100; J1171; J1200; J2250; J2405; J2550; J3010; J3490; J7120